=== PATIENT | female | born 1980 | race African-American/Black ===

== ENCOUNTER → 2023-11-11 | Outpatient (CLI) | payer MEDICAID | LOC: CPPFTMAIN 10:40 | PROVIDERS: ATTEND Family Medicine | DX: Z87.09 Personal history of other diseases of the respiratory system (principal) | CPT/HCPCS: 94060; 94726; 94729 ==

== ENCOUNTER 2023-11-29 13:14 | Emergency (ER) | payer MEDICAID ==
[2023-11-29 13:36] VITALS: TEMP 98.2
--- NOTE | 2023-11-29 13:59 | ED ---
General Adult HPI - General Chief complaint: Anxiety Stated complaint: anxiety Time Seen by Provider: 11/29/23 13:45 Source: patient, RN notes reviewed, old records reviewed Mode of arrival: ambulatory Limitations: no limitations - History of Present Illness Initial comments: This is a 43-year-old female who presents to the emergency department with a p ast medical history significant for anxiety. Patient comes in today because she was at work and saw something that upset her and she became very anxious and then eventually started having a panic attack. Patient states she feels just weird all over and she feels like she is going to be out of control if she does not do something. Patient denies any chest pain or back pain patient has any abdominal pain. Patient denies being short of breath. Patient states she has had these before but it has been a while. - Related Data Home Medications Medication Instructions Recorded Confirmed Tiotropium Bartelso [Spiriva 2 puff INHALATION DAILY 08/12/22 08/23/22 Handihaler] Allergies Allergy/AdvReac Type Severity Reaction Status Date / Time No Known Allergies Allergy Verified 11/29/23 13:36 Review of Systems ROS Statement: Those systems with pertinent positive or pertinent negative responses have been documented in the HPI. ROS Other: All systems not noted in ROS Statement are negative. Past Medical History Past Medical History: COPD Additional Past Medical History / Comment(s): LOW IRON History of Any Multi-Drug Resistant Organisms: None Reported Additional Past Surgical History / Comment(s): BENIGHN CYST REMOVED FROM HEAD AND ARM Past Anesthesia/Blood Transfusion Reactions: No Reported Reaction Past Psychological History: Anxiety Smoking Status: Vaper Past Alcohol Use History: Occasional Past Drug Use History: None Reported General Exam - General Exam Comments Initial Comments: GENERAL: Patient is well-developed and well-nourished. Patient is nontoxic and well- hydrated and is in mild distress. ENT: Neck is soft and supple. No significant lymphadenopathy is noted. Oropharynx is clear. Moist mucous membranes. Neck has full range of motion without eliciting any pain. EYES: The sclera were anicteric and conjunctiva were pink and moist. Extraocular movements were intact and pupils were equal round and reactive to light. Eyelids were unremarkable. PULMONARY: Unlabored respirations. Good breath sounds bilaterally. No audible rales rhonchi or wheezing was noted. CARDIOVASCULAR: There is a regular rate and rhythm without any murmurs gallops or rubs. ABDOMEN: Soft and nontender with normal bowel sounds. SKIN: Skin is clear with no lesions or rashes and otherwise unremarkable. NEUROLOGIC: Patient is alert and oriented x3. Cranial nerves II through XII are grossly intact. Motor and sensory are also intact. Normal speech, volume and content. Symmetrical smile. MUSCULOSKELETAL: Normal extremities with adequate strength and full range of motion. LYMPHATICS: No significant lymphadenopathy is noted PSYCHIATRIC: Patient is very anxious and is tearful and upset because she is having a panic attack. Limitations: no limitations Course Vital Signs 11/29/23 11/29/23 11/29/23 13:34 14:30 15:26 Temperature 98.2 F Pulse Rate 80 68 72 Respiratory 18 16 16 Rate Blood Pressure 167/115 136/85 139/83 O2 Sat by Pulse 100 100 100 Oximetry Medical Decision Making - Medical Decision Making Was pt. sent in by a medical professional or institution (, PA, TITLE SEARCHER, urgent care, hospital, or assisted...) When possible be specific @ -No Did you speak to anyone other than the patient for history (EMS, parent, family, police, friend...)? What history was obtained from this source @ -No Did you review nursing and triage notes (agree or disagree)? Why? @ -I reviewed and agree with nursing and triage notes Were old charts reviewed (outside hosp., previous admission, EMS record, old EKG, old radiological studies, urgent care reports/EKG's, assisted records)? Report findings @ -No old charts were reviewed Differential Diagnosis? @ -Differential Mental Health Depression, anxiety, bipolar, psychosis, schizophrenia, borderline personality, situational depression, adjustment disorder, behavioral disorder, brain tumor, malingering, substance abuse, encephalopathy, medication reaction, dementia, hypothyroidism, degenerative neurologic disorder, lupus.... This is not meant to be all-inclusive list EKG interpreted by me (3pts min.). @ -As above X-rays interpreted by me (1pt min.). @ -None done CT interpreted by me (1pt min.). @ -None done U/S interpreted by me (1pt. min.). @ -None done What testing was considered but not performed or refused? (CT, X-rays, U/S, labs)? Why? @ -None What meds were considered but not given or refused? Why? @ -None Did you discuss the management of the patient with other professionals (professionals i.e. DrBrenda, PA, TITLE SEARCHER, lab, RT, psych nurse, social work nurse, project designer, teacher, executive officer, top case assembler)? Give summary @ -No Was smoking cessation discussed for >3mins.? @ -No Was critical care preformed (if so, how long)? @ -No Were there social determinants of health that impacted care today? How? (Homelessness, low income, unemployed, alcoholism, drug addiction, transportation, low edu. Level, literacy, decrease access to med. care, half-way, rehab)? @ -No Was there de-escalation of care discussed even if they declined (Discuss DNR or withdrawal of care, Hospice)? DNR status @ -No What co-morbidities impacted this encounter? (DM, HTN, Smoking, COPD, CAD, Cancer, CVA, ARF, Chemo, Hep., AIDS, mental health diagnosis, sleep apnea, morbid obesity)? @ -None Was patient admitted / discharged? Hospital course, mention meds given and route, prescriptions, significant lab abnormalities, going to OR and other pertinent info. @ -Patient was given a milligram of Ativan IV and she felt considerably better however she did not feel good enough to go home. Patient had a repeat blood pressure and it was within reasonable range so she received no medications for the elevated blood pressure. Patient will follow-up with her primary medical care doctor Undiagnosed new problem with uncertain prognosis? @ -No Drug Therapy requiring intensive monitoring for toxicity (Heparin, Nitro, Insulin, Cardizem)? @ -No Were any procedures done? @ -No Diagnosis/symptom? @ -Acute anxiety Acute, or Chronic, or Acute on Chronic? @ -Acute Uncomplicated (without systemic symptoms) or Complicated (systemic symptoms)? @ -Complicated Side effects of treatment? @ -No Exacerbation, Progression, or Severe Exacerbation? @ -No Poses a threat to life or bodily function? How? (Chest pain, USA, [place], pneumonia, PE, COPD, DKA, ARF, appy, cholecystitis, CVA, Diverticulitis, Homicidal, Suicidal, threat to staff... and all critical care pts) @ -No Disposition Clinical Impression: Acute anxiety Disposition: HOME SELF-CARE Instructions (If sedation given, give patient instructions): Generalized Anxiety Disorder (ED) Is patient prescribed a controlled substance at d/c from ED?: No Referrals: Angelique Paulson MD [Primary Care Provider] - 1-2 days Time of Disposition: 15:04
[2023-11-29] MEDS: LORazepam 2 MG/ML INJ IV STA (14:07)
[2023-11-29 14:31] VITALS: RESP 16
[2023-11-29] MEDS: LORazepam 1 MG TAB PO STA (15:25)
[2023-11-29 15:41] VITALS: BP 139/83; PULSE 72
== END 2023-11-29 15:30 | disposition home or self-care (01) ==
LOC: EC 13:14
CPT/HCPCS: 96374; 99283

== ENCOUNTER → 2023-12-23 | Outpatient (CLI) | payer MEDICAID ==
[2023-12-23 13:57] VITALS: BP 142/85; PULSE 60; RESP 16; TEMP 98.2
--- NOTE | 2023-12-23 15:03 | P.PN ---
Progress Note - Text Progress Note Date: 12/23/23 I initially met the patient after she made an appointment for "mammogram and pelvic". I discovered that she recently had a pelvic exam with Pap smear done within the month and she was supposed to have a mammogram and pelvic ultrasound as ordered by her PCP. She did not intend to have an appointment to see me for a well woman examination. We contacted Dr. Sunil Duncan's office who indicated that she was supposed to have a mammogram and pelvic ultrasound. As soon as I realized she was not here to see me, the visit was discontinued and she will have the mammogram and pelvic ultrasound as recommended by her PCP. She will not be considered under my care.
--- NOTE | 2023-12-24 10:32 | MM ---
Reason for Exam: Screening (asymptomatic). Baseline mammogram. Patient History: Menarche at age 13. Patient has no children. Last menstrual period: 12/15/2023 Risk Values: Malu 5 year model risk: 0.6%. NCI Lifetime model risk: 9.6%. Prior Study Comparison: Patient's first Mammogram. Tissue Density: The breasts are heterogeneously dense, which may obscure small masses. Findings: Analyzed By CAD. Right breast: There is no suspicious group of microcalcifications or new suspicious mass. Left breast: There is no suspicious group of microcalcifications or new suspicious mass. Overall Assessment: Negative, BI-RAD 1 Management: Screening Mammogram of both breasts in [address] [facility] will attempt to contact patient to return for supplemental views and ultrasound if indicated. Patient should continue monthly self-breast exams. A clinical breast exam by your physician is recommended on an annual basis. This exam should not preclude additional follow-up of suspicious palpable abnormalities. Note on Malu scores and lifetime risk: 1. A Malu score greater than 3% is considered moderate risk. If this is the case, consider specialist referral to assess eligibility for a risk reducing agent. 2. If overall lifetime risk for the development of breast cancer is 20% or higher, the patient may qualify for future screening with alternating mammogram and breast MRI. [facility], , 12/24/2023 10:28 AM. Electronically signed and approved by: Lavelle Doherty DO
== END | disposition home or self-care (01) ==
LOC: WWCWWP 13:25
PROVIDERS: ATTEND Family Medicine
DX: Z12.31 Encounter for screening mammogram for malignant neoplasm of breast
CPT/HCPCS: 77063; 77067

== ENCOUNTER → 2024-01-16 | Outpatient (CLI) | payer MEDICAID ==
[2024-01-17 03:32] LABS: Anisocytosis (M) 2+; Basophils # (A) 0.09 X 10*3/uL (0.00-0.10); Basophils % (A) 1.4 %; Eosinophils % (A) 1.5 %; HCT 25.1 % (37.2-46.3); HGB 6.9 g/dL (12.0-15.0); Hypochromasia (M) 2+; Lymphocytes # (A) 2.05 X 10*3/uL (0.90-5.00); Lymphocytes % (A) 31.4 %; MCH 19.2 pg (27.0-32.0); MCHC 27.5 g/dL (32.0-37.0); MCV 69.7 FL (80.0-97.0); Mean Platelet Volume 10.5 FL (9.5-12.2); Microcytosis (M) 2+; Monocytes # (A) 0.52 X 10*3/uL (0.20-1.00); NRBC Per 100 WBC 0 X 10*3/uL (0.00-0.01); Neutrophils # (A) 3.74 X 10*3/uL (1.80-7.70); Neutrophils % (A) 57.4 %; Platelet Count 303 X 10*3/uL (140-440); RDW 21.3 % (11.5-14.5); Target Cells 2+; WBC 6.52 X 10*3/uL (4.50-10.00)
== END | disposition home or self-care (01) ==
LOC: LABMAIN 19:53
PROVIDERS: ATTEND Physician Assistant
DX: D64.9 Anemia, unspecified (principal)
CPT/HCPCS: 85025

== ENCOUNTER → 2024-01-22 | Outpatient (CLI) | payer MEDICAID ==
--- NOTE | 2024-01-22 12:52 | US ---
EXAMINATION TYPE: US pelvic complete DATE OF EXAM: 01/22/2024 COMPARISON: NONE CLINICAL INDICATION: Female, 43 years old with history of N92.0 EXCESSIVE AND FREQUENT MENSTRUATION; Heavy menses. Hx ?6 Fibroids; Patient denies any other signs, symptoms, or relevant history TECHNIQUE: Transabdominal (TA). Transabdominal grayscale sonographic images of the pelvis were acquired. Transvaginal sonographic im ages were medically necessary to better assess the following anatomy: Doppler imaging: Not performed. FINDINGS: Date of LMP: 01/09/2024 EXAM MEASUREMENTS: Uterus: 10.8 x 13.3 x 4.1 cm Endometrial Stripe: Unable to identify due to pathology cm Right Ovary: 5.0 x 1.5 x 3.0 cm Left Ovary: 3.0 x 2.7 x 7.7 cm 1. Uterus: Anteverted Multiple heterogenous circumscribed areas seen throughout uterus, largest ashley perior right uterus = 7.5 x 6.3 x 7.4 cm 2. Endometrium: Unable to identify due to pathology 3. Right Ovary: wnl 4. Left Ovary: wnl 5. Bilateral Adnexa: wnl 6. Posterior cul-de-sac: wnl Anteverted heterogenous uterus with multiple circumscribed masses throughout the uterus with largest in the superior right uterus measuring up to 7.5 cm. These are consistent with fibroids. Majority nisha ear intramural in location. Endometrium is poorly visualized due to fibroids. Both ovaries appear wit hin normal limits. No free fluid. IMPRESSION: 1. Fibroid changes of the uterus with largest measuring up to 7.5 cm. 2. Poor visualization of the endometrium due to #1. [facility], , 01/22/2024 12:50 PM
== END | disposition home or self-care (01) ==
LOC: RADUSWWP 12:24
PROVIDERS: ATTEND Family Medicine
CPT/HCPCS: 76856

== ENCOUNTER 2024-04-02 10:35 | Emergency (ER) | payer MEDICAID ==
[2024-04-02 10:48] VITALS: RESP 18; TEMP 98.8
--- NOTE | 2024-04-02 11:03 | ED ---
Nausea/Vomiting/Diarrhea HPI - General Chief complaint: Nausea/Vomiting/Diarrhea Stated complaint: Vomiting Time Seen by Provider: 04/02/24 10:58 Source: patient, RN notes reviewed Mode of arrival: ambulatory Limitations: no limitations - History of Present Illness Initial comments: 43-year-old female presenting for evaluation of diarrhea x 3 weeks. States she has been having frequent episodes of mucousy diarrhea with specks of bright red blood for approximately 3 weeks. States she was at work this morning when she suddenly began to feel nauseated and weak and had 1 episode of vomiting. She is having rectal pain due to the frequent diarrhea. She believes she may be dehydrated as she has been following a brat diet due to diarrhea. Denies abd ominal pain, chest pain, shortness of breath. She does have a history of low hemoglobin secondary to uterine fibroids. Last menstrual period was 3 weeks ago. She does have a history of alcohol use. - Related Data Home Medications Medication Instructions Recorded Confirmed Ferrous Sulfate [Feosol] 325 mg PO BID 04/02/24 04/02/24 Multivit with Calcium,Iron,Min 1 tab PO DAILY 04/02/24 04/02/24 [Women's Multivitamin] PARoxetine [Paxil] 20 mg PO DAILY 04/02/24 04/02/24 Previous Rx's Medication Instructions Recorded Loperamide HCl [Imodium A-D] 2 mg PO ONCE PRN #10 tablet 04/02/24 Allergies Allergy/AdvReac Type Severity Reaction Status Date / Time hazelnut Allergy Unknown Verified 04/02/24 11:24 Childhood Review of Systems ROS Statement: Those systems with pertinent positive or pertinent negative responses have been documented in the HPI. ROS Other: All systems not noted in ROS Statement are negative. Past Medical History Past Medical History: COPD Additional Past Medical History / Comment(s): LOW IRON History of Any Multi-Drug Resistant Organisms: None Reported Additional Past Surgical History / Comment(s): BENIGHN CYST REMOVED FROM HEAD AND ARM Past Anesthesia/Blood Transfusion Reactions: No Reported Reaction Past Psychological History: Anxiety Smoking Status: Never smoker Past Alcohol Use History: Daily Past Drug Use History: None Reported General Exam Limitations: no limitations General appearance: alert, in no apparent distress Head exam: Present: atraumatic, normocephalic, normal inspection Eye exam: Present: normal appearance, PERRL, EOMI. Absent: scleral icterus, conjunctival injection, periorbital swelling GI/Abdominal exam: Present: soft, normal bowel sounds. Absent: distended, tenderness, guarding, rebound, rigid Neurological exam: Present: alert, oriented X3 Psychiatric exam: Present: normal affect, normal mood Skin exam: Present: warm, dry, intact, normal color. Absent: rash Course Vital Signs 04/02/24 04/02/24 10:36 16:47 Temperature 98.8 F Pulse Rate 98 96 Respiratory 18 18 Rate Blood Pressure 130/77 130/80 O2 Sat by Pulse 100 98 Oximetry Medical Decision Making - Medical Decision Making Was pt. sent in by a medical professional or institution (, PA, HOTEL FRONT DESK AGENT, urgent care, hospital, or usp...) When possible be specific @ -No Did you speak to anyone other than the patient for history (EMS, parent, family, police, friend...)? What history was obtained from this source @ -No Did you review nursing and triage notes (agree or disagree)? Why? @ -I reviewed and agree with nursing and triage notes Were old charts reviewed (outside hosp., previous admission, EMS record, old EKG, old radiological studies, urgent care reports/EKG's, usp records)? Report findings @ -No old charts were reviewed Differential Diagnosis (chest pain, altered mental status, abdominal pain women, abdominal pain men, vaginal bleeding, weakness, fever, dyspnea, syncope, headache, dizziness, GI bleed, back pain, seizure, CVA, palpatations, mental health, musculoskeletal)? @ -Differential Abdominal Pain Women: Appendicitis, Cholecystitis, diverticulosis, ischemic bowel, pancreatitis, hepatitis, UTI, gastroenteritis, AAA, incarcerated hernia, bowel obstruction, constipation, inflammatory bowel, hepatitis, peptic ulcer disease, splenic infarction, perforated viscus, vulvitis, ovarian torsion, PID, kidney stone, placenta abruption, this is not meant to be an all-inclusive list EKG interpreted by me (3pts min.). @ -As above X-rays interpreted by me (1pt min.). @ -None done CT interpreted by me (1pt min.). @ -CT abdomen pelvis reveals fluid identified within distal colon and rectum consistent with reported history of diarrhea, no focal wall thickening or surrounding inflammatory changes, large fibroid uterus U/S interpreted by me (1pt. min.). @ -None done What testing was considered but not performed or refused? (CT, X-rays, U/S, labs)? Why? @ -None What meds were considered but not given or refused? Why? @ -None Did you discuss the management of the patient with other professionals (professionals i.e. , PA, HOTEL FRONT DESK AGENT, lab, RT, psych nurse, manager social work, parent educator, teacher, correction officer penit[facility]iary, piano case maker)? Give summary @ -No Was smoking cessation discussed for >3mins.? @ -No Was critical care preformed (if so, how long)? @ -No Were there social determinants of health that impacted care today? How? (Homelessness, low income, unemployed, alcoholism, drug addiction, tra nsportation, low edu. Level, literacy, decrease access to med. care, longterm, rehab)? @ -No Was there de-escalation of care discussed even if they declined (Discuss DNR or withdrawal of care, Hospice)? DNR status @ -No What co-morbidities impacted this encounter? (DM, HTN, Smoking, COPD, CAD, Cancer, CVA, ARF, Chemo, Hep., AIDS, mental health diagnosis, sleep apnea, morbid obesity)? @ -None Was patient admitted / discharged? Hospital course, mention meds given and route, prescriptions, significant lab abnormalities, going to OR and other pertinent info. @ -Discharge. This is a 43-year-old female presenting for diarrhea x 3 weeks. Denies abdominal pain. Vital signs within acceptable limits. Abdomen is soft and nontender. Patient is provided IV fluids and antiemetics. EKG reveals negative for ischemic changes. Lab work remarkable for hemoglobin 8.6, otherwise unremarkable. White blood cell count stable at 9. Patient states she has chronic anemia from vaginal bleeding from uterine fibroids, occasionally requiring transfusions. CT abdomen pelvis reveals fluid identified within dis bryant colon and rectum consistent with diarrhea, no focal wall thickening or surrounding inflammatory changes. Results discussed with patient. Patient will be discharged home with a prescription for Imodium. Advise close follow-up with PCP. Appropriate return precautions discussed. Case was discussed with my ED attending Dr. Ramsey. Undiagnosed new problem with uncertain prognosis? @ -No Drug Therapy requiring intensive monitoring for toxicity (Heparin, Nitro, Insulin, Cardizem)? @ -No Were any procedures done? @ -No Diagnosis/symptom? @ -Diarrhea Acute, or Chronic, or Acute on Chronic? @ -Acute Uncomplicated (without systemic symptoms) or Complicated (systemic symptoms)? @ -Uncomplicated Side effects of treatment? @ -No Exacerbation, Progression, or Severe Exacerbation? @ -No Poses a threat to life or bodily function? How? (Chest pain, [place], [place], pneumonia, PE, COPD, DKA, ARF, appy, cholecystitis, CVA, Diverticulitis, Homicidal, Suicidal, threat to staff... and all critical care pts) @ -Not at this time - Lab Data Result diagrams: 04/02/24 11:08 04/02/24 11:08 Lab Results 04/02/24 04/02/24 04/02/24 Range/Units 11:08 11:08 11:08 WBC 9.4 (3.8-10.6) k/uL RBC 4.08 (3.80-5.40) m/uL Hgb 8.6 L (11.4-16.0) gm/dL Hct 29.6 L (34.0-46.0) % MCV 72.7 L (80.0-100.0) fL MCH 21.1 L (25.0-35.0) pg MCHC 29.1 L (31.0-37.0) g/dL RDW 18.3 H (11.5-15.5) % Plt Count 900 H (150-450) k/uL MPV 7.7 Neutrophils % 81 % Lymphocytes % 12 % Monocytes % 4 % Eosinophils % 1 % Basophils % 0 % Neutrophils # 7.6 (1.3-7.7) k/uL Lymphocytes # 1.1 (1.0-4.8) k/uL Monocytes # 0.3 (0-1.0) k/uL Eosinophils # 0.1 (0-0.7) k/uL Basophils # 0.0 (0-0.2) k/uL Hypochromasia Marked Anisocytosis Slight Microcytosis Moderate Sodium 138 (137-145) mmol/L Potassium 3.9 (3.5-5.1) mmol/L Chloride 102 (98-107) mmol/L Carbon Dioxide 24 (22-30) mmol/L Anion Gap 12 mmol/L BUN 8 (7-17) mg/dL Creatinine 0.82 (0.52-1.04) mg/dL Est GFR (CKD-EPI)AfAm >90 (>60 ml/min/1.73 sqM) Est GFR (CKD-EPI)NonAf 89 (>60 ml/min/1.73 sqM) Glucose 119 H (74-99) mg/dL Plasma Lactic Acid Frankie 1.9 (0.7-2.0) mmol/L Calcium 9.7 (8.4-10.2) mg/dL Total Bilirubin 0.5 (0.2-1.3) mg/dL AST 31 (14-36) U/L ALT 21 (4-34) U/L Alkaline Phosphatase 54 (38-126) U/L Total Protein 7.3 (6.3-8.2) g/dL Albumin 4.7 (3.5-5.0) g/dL Lipase 80 (23-300) U/L Urine Color Urine Appearance (Clear) Urine pH (5.0-8.0) Ur Specific [place] (1.001-1.035) Urine Protein (Negative) Urine Glucose (UA) (Negative) Urine Ketones (Negative) Urine Blood (Negative) Urine Nitrite (Negative) Urine Bilirubin (Negative) Urine Urobilinogen (<2.0) mg/dL Ur Leukocyte Esterase (Negative) Urine RBC (0-5) /hpf Urine WBC (0-5) /hpf Ur Squamous Epith Cells (0-4) /hpf Urine Bacteria (None) /hpf Hyaline Casts (0-2) /lpf Urine Mucus (None) /hpf Urine HCG, Qual (Not Detectd) 04/02/24 04/02/24 Range/Units 12:36 12:36 WBC (3.8-10.6) k/uL RBC (3.80-5.40) m/uL Hgb (11.4-16.0) gm/dL Hct (34.0-46.0) % MCV (80.0-100.0) fL MCH (25.0-35.0) pg MCHC (31.0-37.0) g/dL RDW (11.5-15.5) % Plt Count (150-450) k/uL MPV Neutrophils % % Lymphocytes % % Monocytes % % Eosinophils % % Basophils % % Neutrophils # (1.3-7.7) k/uL Lymphocytes # (1.0-4.8) k/uL Monocytes # (0-1.0) k/uL Eosinophils # (0-0.7) k/uL Basophils # (0-0.2) k/uL Hypochromasia Anisocytosis Microcytosis Sodium (137-145) mmol/L Potassium (3.5-5.1) mmol/L Chloride (98-107) mmol/L Carbon Dioxide (22-30) mmol/L Anion Gap mmol/L BUN (7-17) mg/dL Creatinine (0.52-1.04) mg/dL Est GFR (CKD-EPI)AfAm (>60 ml/min/1.73 sqM) Est GFR (CKD-EPI)NonAf (>60 ml/min/1.73 sqM) Glucose (74-99) mg/dL Plasma Lactic Acid Frankie (0.7-2.0) mmol/L Calcium (8.4-10.2) mg/dL Total Bilirubin (0.2-1.3) mg/dL AST (14-36) U/L ALT (4-34) U/L Alkaline Phosphatase (38-126) U/L Total Protein (6.3-8.2) g/dL Albumin (3.5-5.0) g/dL Lipase (23-300) U/L Urine Color Yellow Urine Appearance Cloudy H (Clear) Urine pH 5.5 (5.0-8.0) Ur Specific [place] 1.028 (1.001-1.035) Urine Protein 1+ H (Negative) Urine Glucose (UA) Negative (Negative) Urine Ketones 2+ H (Negative) Urine Blood Negative (Negative) Urine Nitrite Negative (Negative) Urine Bilirubin Negative (Negative) Urine Urobilinogen <2.0 (<2.0) mg/dL Ur Leukocyte Esterase Negative (Negative) Urine RBC 2 (0-5) /hpf Urine WBC 6 H (0-5) /hpf Ur Squamous Epith Cells 4 (0-4) /hpf Urine Bacteria Rare H (None) /hpf Hyaline Casts 1 (0-2) /lpf Urine Mucus Many H (None) /hpf Urine HCG, Qual Not Detected (Not Detectd) - EKG Data -: EKG Interpreted by In EKG Comments: EKG reveals normal sinus rhythm with T wave inversion in lead V1. Ventricular rate 81 bpm, NM interval 136, QRS duration 96, QT/QTc 366/403 Disposition Clinical Impression: Diarrhea Disposition: HOME SELF-CARE Condition: Stable Instructions (If sedation given, give patient instructions): Acute Diarrhea (ED) Additional Instructions: Take Imodium as needed for diarrhea. Follow-up with PCP as discussed. Please return to the Emergency Department if symptoms worsen or any other concerns. Prescriptions: Loperamide HCl [Imodium A-D] 2 mg PO ONCE PRN #10 tablet PRN Reason: Diarrhea Is patient prescribed a controlled substance at d/c from ED?: No Referrals: Angelique Paulson MD [Primary Care Provider] - 1-2 days Time of Disposition: 16:14
[2024-04-02] MEDS: SODIUM CHLORIDE 0.9% 1,000 ML IV STA (11:08)
[2024-04-02] MEDS: ONDANSETRON 4 MG/2 ML VIAL IVP STA (11:09)
[2024-04-02 11:31] LABS: Anisocytosis Slight; Basophils % (A) 0 %; Eosinophils # (A) 0.1 k/uL (0-0.7); Eosinophils % (A) 1 %; HCT 29.6 % (34.0-46.0); HGB 8.6 gm/dL (11.4-16.0); Hypochromasia Marked; Lymphocytes # (A) 1.1 k/uL (1.0-4.8); Lymphocytes % (A) 12 %; MCH 21.1 pg (25.0-35.0); MCHC 29.1 g/dL (31.0-37.0); MCV 72.7 fL (80.0-100.0); Mean Platelet Volume 7.7; Microcytosis Moderate; Monocytes # (A) 0.3 k/uL (0-1.0); Monocytes % (A) 4 %; Neutrophils # (A) 7.6 k/uL (1.3-7.7); Neutrophils % (A) 81 %; Platelet Count 900 k/uL (150-450); RBC 4.08 m/uL (3.80-5.40); RDW 18.3 % (11.5-15.5); WBC 9.4 k/uL (3.8-10.6)
[2024-04-02 11:33] LABS: ALT 21 U/L (4-34); AST 31 U/L (14-36); African American GFR (CKD) >90 (>60 ml/min/1.73 sqM); Albumin 4.7 g/dL (3.5-5.0); Alkaline Phosphatase 54 U/L (38-126); Anion Gap 12 mmol/L; Blood Urea Nitrogen 8 mg/dL (7-17); Calcium 9.7 mg/dL (8.4-10.2); Carbon Dioxide 24 mmol/L (22-30); Chloride 102 mmol/L (98-107); Glucose 119 mg/dL (74-99); Lipase 80 U/L (23-300); Non-African American GFR(CKD) 89 (>60 ml/min/1.73 sqM); Potassium 3.9 mmol/L (3.5-5.1); Sodium 138 mmol/L (137-145); Total Bilirubin 0.5 mg/dL (0.2-1.3); Total Protein 7.3 g/dL (6.3-8.2)
[2024-04-02 12:56] LABS: Appearance,Urine Cloudy (Clear); Bacteria,Urine Rare /hpf; Bilirubin,Urine Negative (Negative); Blood,Urine Negative (Negative); Color,Urine Yellow; Glucose,Urine (UA) Negative (Negative); Hyaline Casts,Urine 1 /lpf (0-2); Ketones,Urine 2+ (Negative); Leukocyte Esterase,Urine Negative (Negative); Mucus,Urine Many /hpf; Nitrite,Urine Negative (Negative); PH, Urine 5.5 (5.0-8.0); Protein,Urine 1+ (Negative); RBC,Urine 2 /hpf (0-5); Specific Gravity,Urine 1.028 (1.001-1.035); Squamous Epithelial Cell,Urine 4 /hpf (0-4); Urobilinogen,Urine <2.0 mg/dL (<2.0); WBC,Urine 6 /hpf (0-5)
[2024-04-02] MEDS ORDERED: IOPAMIDOL CONTRAST (ORAL USE) VIAL PO PRN (13:56)
--- NOTE | 2024-04-02 16:02 | CT ---
EXAMINATION TYPE: CT abdomen pelvis w con CT DLP: 633.5 mGycm, Automated exposure control for dose reduction was used. DATE OF EXAM: 04/02/2024 3:48 PM COMPARISON: Pelvic ultrasound 01/22/2024 CLINICAL INDICATION:Female, 43 years old with history of abdominal pain, acute, nonlocalized; Diarrhe a x3wks. TECHNIQUE: Standard CT of the abdomen and pelvis following the administration of 100 cc of Isovue 3 00 IV contrast material and oral contrast. Coronal and sagittal reformats were performed. FINDINGS: LOWER CHEST: Unremarkable ABDOMEN LIVER: Unremarkable GALLBLADDER AND BILE DUCTS: Unremarkable. PANCREAS: Unremarkable. SPLEEN: Unremarkable. ADRENAL GLANDS: Unremarkable. KIDNEYS AND URETERS: No evidence of hydronephrosis or renal calculus. The kidneys enhance symmetrical ly. Contrast is demonstrated within both collecting systems on the delayed phase. PELVIS BLADDER: Under distended, limiting evaluation. REPRODUCTIVE: Enlarged anteverted uterus with multiple fibroids including some subserosal fibroids. L argest which appears more intramural measures up to 8.1 cm. Pedunculated one along the anterior uteri ne fundus measures up to 5.1 cm. A subserosal one along the left aspect of the uterine fundus measure s up to 6.4 cm. ABDOMEN & PELVIS STOMACH AND BOWEL: Stomach and duodenum are unremarkable. Enteric contrast reaches the transverse col on. Fluid-filled distal colon and rectum. No focal bowel wall thickening or surrounding inflammatory changes. The appendix is not definitively identified. No evidence of bowel obstruction. PERITONEUM: No evidence of pneumoperitoneum. Trace free fluid in the pelvis. VASCULATURE: No evidence of aortic aneurysm. Portal venous system is patent. Pelvic phleboliths. MUSCULOSKELETAL: No acute osseous abnormalities. Left L5 transverse process articulation with the lef t hemisacrum. LYMPH NODES: No evidence for lymphadenopathy. SOFT TISSUE/ABDOMINAL WALL: Unremarkable IMPRESSION: 1. Fluid identified within the distal colon and rectum consistent with reported history of diarrhea. No focal wall thickening or surrounding inflammatory changes. 2. Large fibroid uterus which may contribute to patient's abdominal pain. [facility], , 04/02/2024 4:00 PM
[2024-04-02 16:48] VITALS: BP 130/80; PULSE 96
== END 2024-04-02 16:48 | disposition home or self-care (01) ==
LOC: EC 10:35
DX: R19.7 Diarrhea, unspecified (principal); Z88.8 Allergy status to other drugs, medicaments and biological substances
CPT/HCPCS: 36415; 93005; 80053; 83605; 83690; 85025; 81001; 81025; 74177; 99284; 96374; 96361; J2405; Q9967

== ENCOUNTER 2024-04-07 09:11 | Inpatient (IN) | payer MEDICAID ==
--- NOTE | 2024-04-07 09:49 | ED ---
Nausea/Vomiting/Diarrhea HPI - General Source: patient, RN notes reviewed Mode of arrival: ambulatory Limitations: no limitations <Aidan Null - Last Filed: 04/07/24 16:14> <Melanie Solis - Last Filed: 04/07/24 17:32> - General Chief complaint: Nausea/Vomiting/Diarrhea Stated complaint: dehydration, nausea, diarrhea Time Seen by Provider: 04/07/24 09:20 - History of Present Illness Initial comments: Patient is a 43 year old female presenting with nausea and diarrhea for the past month. She notes that she is having tenderness in the left side of her abdomen, but rates the pain a 1-2/10. She states that on 04/02/24 she vomited at work, and she also had a CT scan, she states the CT showed "colitis". She denies any radiation of pain to her back. She states she feels bloated and gassy as well. She notes her diarrhea has gotten dark recently, but wonders if it is because she "started prebiotics and probiotics recently". She states she has been fatigued, dehydrated, and "passed out" twice this morning after getting out of the shower, denies hitting head or injury and states it was "for a few seconds". She endorses some shortness of breath "when I have to get up". She denies any chest pain, urinary changes. (Aidan Null) - Related Data Home Medications Medication Instructions Recorded Confirmed Ferrous Sulfate [Feosol] 325 mg PO BID 04/02/24 04/07/24 Multivit with Calcium,Iron,Min 1 tab PO DAILY 04/02/24 04/07/24 [Women's Multivitamin] PARoxetine [Paxil] 20 mg PO DAILY 04/02/24 04/07/24 Loperamide HCl [Imodium A-D] 2 - 4 mg PO QID PRN 04/07/24 04/07/24 Allergies Allergy/AdvReac Type Severity Reaction Status Date / Time hazelnut Allergy Unknown Verified 04/07/24 11:59 Childhood Review of Systems ROS Other: All systems not noted in ROS Statement are negative. <Aidan Null - Last Filed: 04/07/24 16:14> ROS Other: All systems not noted in ROS Statement are negative. <Melanie Solis - Last Filed: 04/07/24 17:32> ROS Statement: Those systems with pertinent positive or pertinent negative responses have been documented in the HPI. Past Medical History Past Medical History: COPD Additional Past Medical History / Comment(s): LOW IRON History of Any Multi-Drug Resistant Organisms: None Reported Additional Past Surgical History / Comment(s): BENIGHN CYST REMOVED FROM HEAD AND ARM Past Anesthesia/Blood Transfusion Reactions: No Reported Reaction Past Psychological History: Anxiety Smoking Status: Never smoker Past Alcohol Use History: Daily Past Drug Use History: None Reported <Aidan Null - Last Filed: 04/07/24 16:14> General Exam Limitations: no limitations General appearance: alert, in no apparent distress ENT exam: Present: mucous membranes dry Respiratory exam: Present: normal lung sounds bilaterally. Absent: respiratory distress, wheezes, rales, rhonchi, stridor Cardiovascular Exam: Present: normal rhythm, tachycardia, normal heart sounds. Absent: systolic murmur, diastolic murmur, rubs, gallop, clicks GI/Abdominal exam: Present: soft, tenderness, hyperactive bowel sounds. Absent: distended, guarding, rebound, rigid Back exam: Present: normal inspection. Absent: tenderness Neurological exam: Present: alert, oriented X3, CN II-XII intact Skin exam: Present: warm, dry, intact, normal color. Absent: rash <Aidan Null - Last Filed: 04/07/24 16:14> Course Vital Signs 04/07/24 04/07/24 04/07/24 09:17 10:45 10:50 Temperature 102.5 F H Pulse Rate 118 H 94 94 Respiratory 18 16 20 Rate Blood Pressure 113/71 135/75 136/74 O2 Sat by Pulse 98 98 98 Oximetry 04/07/24 04/07/24 04/07/24 12:00 14:00 15:00 Temperature Pulse Rate 75 84 90 Respiratory 20 16 20 Rate Blood Pressure 130/70 113/69 114/60 O2 Sat by Pulse 98 98 98 Oximetry Medical Decision Making - Lab Data Result diagrams: 04/07/24 09:38 04/07/24 09:38 - EKG Data -: EKG Interpreted by Nd <Aidan Null - Last Filed: 04/07/24 16:14> - Lab Data Result diagrams: 04/07/24 09:38 04/07/24 09:38 <SolisMelanie gomez - Last Filed: 04/07/24 17:32> - Medical Decision Making Was pt. sent in by a medical professional or institution ([facility], [employer], urgent care, hospital, or shelter...) When possible be specific @ -No Did you speak to anyone other than the patient for history (EMS, parent, family, police, friend...)? What history was obtained from this source @ -No Did you review nursing and triage notes (agree or disagree)? Why? @ -I reviewed and agree with nursing and triage notes Were old charts reviewed (outside hosp., previous admission, EMS record, old EKG, old radiological studies, urgent care reports/EKG's, shelter records)? Report findings @ -Reviewed CT on 04/05/2024 showing diarrhea, uterine fibroids Differential Diagnosis (chest pain, altered mental status, abdominal pain women, abdominal pain men, vaginal bleeding, weakness, fever, dyspnea, syncope, headache, dizziness, GI bleed, back pain, seizure, CVA, palpatations, mental health, musculoskeletal)? @ -Differential Fever: Pneumonia, viral URI, endocarditis, myocarditis, pericarditis, otitis, sinusitis, peritonsillar Abscess, retropharyngeal Abscess, epiglottitis, peritonitis, appendicitis, Rachel cystitis, diverticulitis, hepatitis, colitis, UTI, PID, TOA, pyelonephritis, prostatitis, epididymitis, meningitis, encepha litis, pulmonary embolism, CVA, thyroid storm, pancreatitis, adrenal crisis, cavernous sinus thrombosis, this is not meant to be an all-inclusive list. EKG interpreted by me (3pts min.). @ -As above X-rays interpreted by me (1pt min.). @ -Chest x-ray shows no acute cardiopulmonary process CT interpreted by me (1pt min.). @ -None done U/S interpreted by me (1pt. min.). @ -None done What testing was considered but not performed or refused? (CT, X-rays, U/S, labs)? Why? @ -None What meds were considered but not given or refused? Why? @ -None Did you discuss the management of the patient with other professionals (professionals i.e. [facility] Gomez, [employer], lab, RT, psych nurse, psych social worker, data center technician, teacher, workers' compensation hearings officer, nurse case manager)? Give summary @ -No Was smoking cessation discussed for >3mins.? @ -No Was critical care preformed (if so, how long)? @ -No Were there social determinants of health that impacted care today? How? (Homelessness, low income, unemployed, alcoholism, drug addiction, tr ansportation, low edu. Level, literacy, decrease access to med. care, group home, rehab)? @ -No Was there de-escalation of care discussed even if they declined (Discuss DNR or withdrawal of care, Hospice)? DNR status @ -No What co-morbidities impacted this encounter? (DM, HTN, Smoking, COPD, CAD, Cancer, CVA, ARF, Chemo, Hep., AIDS, mental health diagnosis, sleep apnea, morbid obesity)? @ -None Was patient admitted / discharged? Hospital course, mention meds given and route, prescriptions, significant lab abnormalities, going to OR and other pertinent info. @ case signed out to Melanie HARMON signed Aidan Null PA-C (Aidan Null) Patient signed out to me pending C. difficile testing. Patient is C. difficile positive. Given white count of 22.9 and dehydration, patient will be admitted for observation. She started on oral vancomycin 125 mg. IV fluids, as needed antiemetics, as needed pain meds. She is educated on today's findings and treatment plan, she is agreeable. I discussed this case with my attending Dr. Garcia (Melanie Solis) - Lab Data Lab Results 04/07/24 04/07/24 04/07/24 Range/Units 09:38 09:38 09:38 WBC 22.9 H (3.8-10.6) k/uL RBC 4.29 (3.80-5.40) m/uL Hgb 9.0 L (11.4-16.0) gm/dL Hct 29.4 L (34.0-46.0) % MCV 68.4 L (80.0-100.0) fL MCH 20.9 L (25.0-35.0) pg MCHC 30.5 L (31.0-37.0) g/dL RDW 17.5 H (11.5-15.5) % Plt Count 644 H (150-450) k/uL MPV 8.1 Neutrophils % 87 % Lymphocytes % 3 % Monocytes % 7 % Eosinophils % 0 % Basophils % 0 % Neutrophils # 20.0 H (1.3-7.7) k/uL Lymphocytes # 0.8 L (1.0-4.8) k/uL Monocytes # 1.7 H (0-1.0) k/uL Eosinophils # 0.0 (0-0.7) k/uL Basophils # 0.1 (0-0.2) k/uL Hypochromasia Marked Poikilocytosis Slight Anisocytosis Slight Microcytosis Marked Sodium 130 L (137-145) mmol/L Potassium 3.3 L (3.5-5.1) mmol/L Chloride 90 L (98-107) mmol/L Carbon Dioxide 28 (22-30) mmol/L Anion Gap 12 mmol/L BUN 7 (7-17) mg/dL Creatinine 0.88 (0.52-1.04) mg/dL Est GFR (CKD-EPI)AfAm >90 (>60 ml/min/1.73 sqM) Est GFR (CKD-EPI)NonAf 82 (>60 ml/min/1.73 sqM) Glucose 141 H (74-99) mg/dL Calcium 9.4 (8.4-10.2) mg/dL Magnesium 1.6 (1.6-2.3) mg/dL Total Bilirubin 0.6 (0.2-1.3) mg/dL AST 26 (14-36) U/L ALT 19 (4-34) U/L Alkaline Phosphatase 87 (38-126) U/L Total Protein 6.6 (6.3-8.2) g/dL Albumin 3.8 (3.5-5.0) g/dL Urine Color Urine Appearance (Clear) Urine pH (5.0-8.0) Ur Specific [place] (1.001-1.035) Urine Protein (Negative) Urine Glucose (UA) (Negative) Urine Ketones (Negative) Urine Blood (Negative) Urine Nitrite (Negative) Urine Bilirubin (Negative) Urine Urobilinogen (<2.0) mg/dL Ur Leukocyte Esterase (Negative) Urine WBC (0-5) /hpf Ur Squamous Epith Cells (0-4) /hpf Urine Bacteria (None) /hpf Hyaline Casts (0-2) /lpf Urine Mucus (None) /hpf C. difficile (EIA) Intrp (Negative) Influenza Type A (PCR) Not Detected (Not Detectd) Influenza Type B (PCR) Not Detected (Not Detectd) RSV (PCR) Not Detected (Not Detectd) SARS-CoV-2 (PCR) Not Detected (Not Detectd) 04/07/24 04/07/24 Range/Units 11:23 14:00 WBC (3.8-10.6) k/uL RBC (3.80-5.40) m/uL Hgb (11.4-16.0) gm/dL Hct (34.0-46.0) % MCV (80.0-100.0) fL MCH (25.0-35.0) pg MCHC (31.0-37.0) g/dL RDW (11.5-15.5) % Plt Count (150-450) k/uL MPV Neutrophils % % Lymphocytes % % Monocytes % % Eosinophils % % Basophils % % Neutrophils # (1.3-7.7) k/uL Lymphocytes # (1.0-4.8) k/uL Monocytes # (0-1.0) k/uL Eosinophils # (0-0.7) k/uL Basophils # (0-0.2) k/uL Hypochromasia Poikilocytosis Anisocytosis Microcytosis Sodium (137-145) mmol/L Potassium (3.5-5.1) mmol/L Chloride (98-107) mmol/L Carbon Dioxide (22-30) mmol/L Anion Gap mmol/L BUN (7-17) mg/dL Creatinine (0.52-1.04) mg/dL Est GFR (CKD-EPI)AfAm (>60 ml/min/1.73 sqM) Est GFR (CKD-EPI)NonAf (>60 ml/min/1.73 sqM) Glucose (74-99) mg/dL Calcium (8.4-10.2) mg/dL Magnesium (1.6-2.3) mg/dL Total Bilirubin (0.2-1.3) mg/dL AST (14-36) U/L ALT (4-34) U/L Alkaline Phosphatase (38-126) U/L Total Protein (6.3-8.2) g/dL Albumin (3.5-5.0) g/dL Urine Color Yellow Urine Appearance Cloudy H (Clear) Urine pH 6.0 (5.0-8.0) Ur Specific [place] 1.017 (1.001-1.035) Urine Protein 1+ H (Negative) Urine Glucose (UA) Negative (Negative) Urine Ketones 1+ H (Negative) Urine Blood Negative (Negative) Urine Nitrite Negative (Negative) Urine Bilirubin Negative (Negative) Urine Urobilinogen <2.0 (<2.0) mg/dL Ur Leukocyte Esterase Negative (Negative) Urine WBC 10 H (0-5) /hpf Ur Squamous Epith Cells 4 (0-4) /hpf Urine Bacteria Rare H (None) /hpf Hyaline Casts 1 (0-2) /lpf Urine Mucus Few H (None) /hpf C. difficile (EIA) Intrp Positive A (Negative) Influenza Type A (PCR) (Not Detectd) Influenza Type B (PCR) (Not Detectd) RSV (PCR) (Not Detectd) SARS-CoV-2 (PCR) (Not Detectd) - EKG Data EKG Comments: EKG performed at 10: 24 sinus rhythm rate 99 ID 126 QRS 100 QT/QTc 269/326 (Aidan Null) Disposition <Aidan Null - Last Filed: 04/07/24 16:14> Time of Disposition: 16:55 <Melanie Solis - Last Filed: 04/07/24 17:32> Clinical Impression: C. difficile diarrhea Disposition: ADMITTED IP TO THIS HOSP Condition: Fair
[2024-04-07] MEDS: SODIUM CHLORIDE 0.9% 1,000 ML IV STA (10:37)
[2024-04-07] MEDS: IBUPROFEN 600 MG TAB PO STA (10:39)
[2024-04-07] MEDS: ONDANSETRON 4 MG/2 ML VIAL IVP STA ×2 (10:39→15:27)
[2024-04-07] MEDS: ACETAMINOPHEN TAB 500 MG TAB PO STA (10:39)
[2024-04-07 11:09] LABS: ALT 19 U/L (4-34); AST 26 U/L (14-36); African American GFR (CKD) >90 (>60 ml/min/1.73 sqM); Albumin 3.8 g/dL (3.5-5.0); Alkaline Phosphatase 87 U/L (38-126); Anion Gap 12 mmol/L; Blood Urea Nitrogen 7 mg/dL (7-17); Calcium 9.4 mg/dL (8.4-10.2); Carbon Dioxide 28 mmol/L (22-30); Chloride 90 mmol/L (98-107); Glucose 141 mg/dL (74-99); Magnesium 1.6 mg/dL (1.6-2.3); Non-African American GFR(CKD) 82 (>60 ml/min/1.73 sqM); Potassium 3.3 mmol/L (3.5-5.1); Sodium 130 mmol/L (137-145); Total Bilirubin 0.6 mg/dL (0.2-1.3); Total Protein 6.6 g/dL (6.3-8.2)
[2024-04-07 11:17] LABS: Anisocytosis Slight; Basophils # (A) 0.1 k/uL (0-0.2); Basophils % (A) 0 %; Eosinophils % (A) 0 %; HCT 29.4 % (34.0-46.0); Hypochromasia Marked; Lymphocytes # (A) 0.8 k/uL (1.0-4.8); Lymphocytes % (A) 3 %; MCH 20.9 pg (25.0-35.0); MCHC 30.5 g/dL (31.0-37.0); MCV 68.4 fL (80.0-100.0); Mean Platelet Volume 8.1; Microcytosis Marked; Monocytes # (A) 1.7 k/uL (0-1.0); Monocytes % (A) 7 %; Neutrophils % (A) 87 %; Platelet Count 644 k/uL (150-450); Poikilocytosis Slight; RBC 4.29 m/uL (3.80-5.40); RDW 17.5 % (11.5-15.5); WBC 22.9 k/uL (3.8-10.6)
[2024-04-07 11:28] LABS: Influenza A Not Detected (Not Detectd); Influenza B Not Detected (Not Detectd); RSV Not Detected (Not Detectd)
[2024-04-07 11:45] LABS: Appearance,Urine Cloudy (Clear); Bacteria,Urine Rare /hpf; Bilirubin,Urine Negative (Negative); Blood,Urine Negative (Negative); Color,Urine Yellow; Glucose,Urine (UA) Negative (Negative); Hyaline Casts,Urine 1 /lpf (0-2); Ketones,Urine 1+ (Negative); Leukocyte Esterase,Urine Negative (Negative); Mucus,Urine Few /hpf; Nitrite,Urine Negative (Negative); Protein,Urine 1+ (Negative); Specific Gravity,Urine 1.017 (1.001-1.035); Squamous Epithelial Cell,Urine 4 /hpf (0-4); Urobilinogen,Urine <2.0 mg/dL (<2.0); WBC,Urine 10 /hpf (0-5)
--- NOTE | 2024-04-07 12:41 | XR ---
EXAMINATION TYPE: XR chest 2V DATE OF EXAM: 04/07/2024 12:20 PM COMPARISON: None CLINICAL INDICATION: Female, 43 years old with history of fever; [facility] TECHNIQUE: XR chest 2V Frontal and lateral views of the chest. FINDINGS: Lungs/Pleura: There is no evidence of pleural effusion, focal consolidation, or pneumothorax. Pulmonary vascularity: Unremarkable. Heart/mediastinum: Cardiomediastinal silhouette is unremarkable. Musculoskeletal: No acute osseous pathology. Other findings: None Lines/Tubes: IMPRESSION: No acute cardiopulmonary disease/process. [facility], , 04/07/2024 12:38 PM
[2024-04-07] MEDS: SODIUM CHLORIDE 0.9% 1,000 ML IV ONE (14:14)
[2024-04-07] MEDS ORDERED: NALOXONE 0.4 MG/ML 1 ML VIAL IV PRN (16:59)
[2024-04-07] MEDS ORDERED: ACETAMINOPHEN TAB 325 MG TAB PO PRN (16:59)
[2024-04-07] MEDS ORDERED: ONDANSETRON 4 MG/2 ML VIAL IVP PRN (16:59)
[2024-04-07] MEDS ORDERED: IBUPROFEN 400 MG TAB PO PRN (16:59)
[2024-04-07] MEDS ORDERED: Potassium Replacement Protocol 1 EACH MISC MISCELLANE PRN (17:30)
[2024-04-07] MEDS: SODIUM CHLORIDE 0.9% 1,000 ML IV SCH (17:57)
[2024-04-07] MEDS: POTASSIUM CHLORIDE ER 20 MEQ TAB.ER PO SCH (17:58)
[2024-04-07] MEDS: VANCOMYCIN 125 MG CAPSULE PO SCH (17:59)
[2024-04-07] MEDS: METOCLOPRAMIDE 5 MG/ML 2 ML VIAL IVP PRN (22:24)
[2024-04-08 11:01] LABS: ALT 23 U/L (8-44); AST 29 U/L (13-35); Albumin 3.1 g/dL (3.8-4.9); Albumin/Globulin Ratio 1.29 Ratio (1.60-3.17); Alkaline Phosphatase 79 U/L (41-126); BUN/Creat Ratio 12.75 Ratio (12.00-20.00); Blood Urea Nitrogen 10.2 mg/dL (9.0-27.0); Calcium 8.4 mg/dL (8.7-10.3); Carbon Dioxide 23.2 mmol/L (21.6-31.8); Chloride 95 mmol/L (96-109); Globulin 2.4 g/dL (1.6-3.3); Glucose 109 mg/dL (70-110); Potassium 3.7 mmol/L (3.5-5.5); Sodium 133 mmol/L (135-145); Total Bilirubin 0.3 mg/dL (0.3-1.2); Total Protein 5.5 g/dL (6.2-8.2)
[2024-04-08] MEDS: PARoxetine 20 MG TAB PO SCH (11:17)
[2024-04-08] MEDS: LOPERAMIDE 2 MG CAP PO PRN (11:17)
[2024-04-08 11:50] LABS: HCT 26.5 % (37.2-46.3); HGB 7.8 g/dL (12.0-15.0); MCH 20.1 pg (27.0-32.0); MCHC 29.4 g/dL (32.0-37.0); MCV 68.3 FL (80.0-97.0); Mean Platelet Volume 10.3 FL (9.5-12.2); NRBC Per 100 WBC 0 X 10*3/uL (0.00-0.01); Platelet Count 621 X 10*3/uL (140-440); RBC 3.88 X 10*6/uL (4.10-5.20); RDW 19.4 % (11.5-14.5); WBC 37.57 X 10*3/uL (4.50-10.00)
[2024-04-08 11:51] LABS: Basophils # (A) 0.05 X 10*3/uL (0.00-0.10); Basophils % (A) 0.1 %; Elliptocytes 2+ (None Seen); Eosinophils # (A) 0.03 X 10*3/uL (0.04-0.35); Eosinophils % (A) 0.1 %; Lymphocytes # (A) 0.88 X 10*3/uL (0.90-5.00); Lymphocytes % (A) 2.3 %; Monocytes # (A) 1.85 X 10*3/uL (0.20-1.00); Monocytes % (A) 4.9 %; Neutrophils # (A) 34.58 X 10*3/uL (1.80-7.70); Neutrophils % (A) 92.1 %
[2024-04-08 13:51] VITALS: BMI 23.5
[2024-04-08] MEDS: LACTOBACILLUS ACIDOPHILUS/PECT 1 EACH CAPSULE PO SCH (14:29)
[2024-04-08] MEDS: VANCOMYCIN 125 MG CAPSULE PO SCH (14:30)
--- NOTE | 2024-04-08 15:01 | P.HPIM ---
History of Present Illness H&P Date: 04/08/24 This is a pleasant 43-year-old female with medical history significant for COPD, anxiety/depression, daily vape use. Patient comes into the hospital after reporting a 1 month history of nausea and diarrhea. She also feels bloated and gassy. She then over the last couple days experiencing dark stools and abdominal discomfort mainly on the left side and had some mild abdominal tenderness. Patient has not reported fever but was found to have a temp of 102.5 on admission. Has been fatigued and states she "passed out" today while getting out of the shower. She has been following along with her family doctor for this diarrhea recommended yogurt and probiotics and patient has been doing that for the last 4 to 5 days. She is also on oral iron for iron deficiency anemia and states that her stools have been darker over the last couple days as well. Had an abdominal pelvis CT done on which reveals fluid identified within the distal colon and rectum consistent with reported history of diarrhea. No focal wall thickening or surrounding inflammatory changes. Large fibroid uterus which may contribute to patient's abdominal pain. On admission, patient was found to have C. difficile infection. Patient does report being on oral and vaginal metronidazole for BV, 2 to 3 months before she began having the diarrhea. Chest X-ray on admission reveals no acute cardiopulmonary process. Initial white blood cell count of 22.9, hemoglobin of 9.0, sodium level of 130, potassium 3.3, BUN of 7 creatinine of 0.88. REVIEW OF SYSTEMS: CONSTITUTIONAL: No fever, no malaise, no fatigue. HEENT: No recent visual problems or hearing problems. Denied any sore throat. CARDIOVASCULAR: No chest pain, orthopnea, PND, no palpitations, no syncope. PULMONARY: No shortness of breath, no cough, no hemoptysis. GASTROINTESTINAL: Reorts diarrhea, no nausea, no vomiting, no abdominal pain. NEUROLOGICAL: No headaches, no weakness, no numbness. HEMATOLOGICAL: Denies any bleeding or petechiae. GENITOURINARY: Denies any burning micturition, frequency, or urgency. MUSCULOSKELETAL/RHEUMATOLOGICAL: Denies any joint pain, swelling, or any muscle pain. ENDOCRINE: Denies any polyuria or polydipsia. The rest of the 14-point review of systems is negative. PHYSICAL EXAMINATION: GENERAL: The patient is alert and oriented x3, not in any acute distress. Well developed, well nourished. HEENT: Pupils are round and equally reacting to light. EOMI. No scleral icterus. No conjunctival pallor. Normocephalic, atraumatic. No pharyngeal erythema. No thyromegaly. CARDIOVASCULAR: S1 and S2 present. No murmurs, rubs, or gallops. PULMONARY: Chest is clear to auscultation, no wheezing or crackles. ABDOMEN: Soft, mild abdominal tenderness, nondistended, normoactive bowel sounds. No palpable organomegaly. MUSCULOSKELETAL: No joint swelling or deformity. EXTREMITIES: No cyanosis, clubbing, or pedal edema. NEUROLOGICAL: Gross neurological examination did not reveal any focal deficits. SKIN: No rashes. Assessment and plan Diarrhea of 1 month with positive C. difficile Leukocytosis and fever with concern for sepsis on admission History of iron deficiency anemia maintained on oral ferrous sulfate which is currently being held at this time Hyponatremia hypovolemic improved with IV fluids Hypokalemia secondary to continued diarrhea Abnormal urinalysis no evidence for acute infection this is dehydrational History of COPD with no acute exacerbation History of anxiety/depression, Daily vape use GI prophylaxis Full code Plan Infectious disease consultation Patient has been started on oral vancomycin 500 mg 4 times a day Monitor electrolytes and replace per protocol patient will be given oral potassium supplementation Continue IV fluids decreased to normal saline at 75 mL/h Repeat blood work in the morning The impression and plan of care has been dictated by Skyla Nelson Nurse Practitioner as directed. Dr. Nikunj MD I have performed a history and physical examination and medical decision making of this patient, discussed the same with the dictator, and agree with the dictators assessment and plan as written, documented as a scribe. Based on total visit time, I have performed more than 50% of this visit. Past Medical History Past Medical History: COPD Additional Past Medical History / Comment(s): LOW IRON History of Any Multi-Drug Resistant Organisms: C-DIFF Date of last positivie culture/infection: 04/07/2024 MDRO Source:: stool Additional Past Surgical History / Comment(s): BENIGN CYST REMOVED FROM HEAD AND ARM Past Anesthesia/Blood Transfusion Reactions: No Reported Reaction Past Psychological History: Anxiety, Depression Additional Psychological History / Comment(s): HX OF DEPRESSION AND ANXIETY NOT CURRENTLY TX Smoking Status: Vaper Past Alcohol Use History: Daily Past Drug Use History: Marijuana Additional Drug Use History / Comment(s): NONE CURRENTLY HX - Past Family History Father Family Medical History: Diabetes Mellitus, Hypertension, Myocardial Infarction ([place]) Additional Family Medical History / Comment(s): thyroid Ca, schizophrenia Mother Family Medical History: Diabetes Mellitus, Thyroid Disorder Medications and Allergies Home Medications Medication Instructions Recorded Confirmed Type Ferrous Sulfate [Feosol] 325 mg PO BID 04/02/24 04/07/24 History Multivit with Calcium,Iron,Min 1 tab PO DAILY 04/02/24 04/07/24 History [Women's Multivitamin] PARoxetine [Paxil] 20 mg PO DAILY 04/02/24 04/07/24 History Loperamide HCl [Imodium A-D] 2 - 4 mg PO QID PRN 04/07/24 04/07/24 History Allergies Allergy/AdvReac Type Severity Reaction Status Date / Time hazelnut Allergy Unknown Verified 04/07/24 11:59 Childhood Physical Exam Vitals: Vital Signs Temp Pulse Pulse Resp BP BP Pulse Ox 04/08/24 08:00 16 04/08/24 07:10 100.0 F H 93 16 105/61 100 04/08/24 00:49 98.6 F 92 16 119/70 100 04/07/24 21:50 98.5 F 92 16 116/72 96 04/07/24 20:46 97.5 F L 88 18 105/75 100 04/07/24 18:00 85 20 125/68 98 04/07/24 15:00 90 20 114/60 98 Intake and Output 04/07/24 04/08/24 04/08/24 22:59 06:59 14:59 Intake Total 200 Balance 200 Intake: Oral 200 Other: Voiding Method Toilet # Voids 5 # Bowel Movements 1 Weight 68.039 kg 68.039 kg Results CBC & Chem 7: 04/08/24 06:48 04/08/24 06:48 Labs: Abnormal Lab Results - Last 24 Hours (Table) 04/07/24 04/08/24 04/08/24 Range/Units 14:00 06:48 06:48 WBC 37.57 H (4.50-10.00) X 10*3/uL RBC 3.88 L (4.10-5.20) X 10*6/uL Hgb 7.8 L (12.0-15.0) g/dL Hct 26.5 L (37.2-46.3) % MCV 68.3 L (80.0-97.0) FL MCH 20.1 L (27.0-32.0) pg MCHC 29.4 L (32.0-37.0) g/dL RDW 19.4 H (11.5-14.5) % Plt Count 621 H (140-440) X 10*3/uL Immature Gran # 0.18 H (0.00-0.04) X 10*3/uL Neutrophils # 34.58 H (1.80-7.70) X 10*3/uL Lymphocytes # 0.88 L (0.90-5.00) X 10*3/uL Monocytes # 1.85 H (0.20-1.00) X 10*3/uL Eosinophils # 0.03 L (0.04-0.35) X 10*3/uL Elliptocytes 2+ A (None Seen) Sodium 133 L (135-145) mmol/L Chloride 95 L (96-109) mmol/L Anion Gap 14.80 H (4.00-12.00) mmol/L Calcium 8.4 L (8.7-10.3) mg/dL Total Protein 5.5 L (6.2-8.2) g/dL Albumin 3.1 L (3.8-4.9) g/dL Albumin/Globulin Ratio 1.29 L (1.60-3.17) Ratio C. difficile (EIA) Intrp Positive A (Negative) Thrombosis Risk Factor Assmnt - Choose All That Apply Any of the Below Risk Factors Present?: Yes Each Factor Represents 1 point: Abnormal pulmonary function (COPD), Age 41-60 y ears Other Risk Factors: No Other congenital or acquired thrombophilia - If yes, enter type in comment: No Thrombosis Risk Factor Assessment Total Risk Factor Score: 2 Thrombosis Risk Factor Assessment Level: Low Risk Assessment and Plan Time with Patient: Less than 30
[2024-04-08] MEDS: SODIUM CHLORIDE 0.9% 1,000 ML IV SCH (18:25)
[2024-04-09] MEDS: PANTOPRAZOLE 40 MG TABLET PO SCH (06:41)
[2024-04-09] MEDS: KETOROLAC 15 MG/ML 1 ML VIAL IVP PRN (06:46)
--- NOTE | 2024-04-09 08:33 | P.GSCN ---
History of Present Illness Consult date: 04/08/24 History of present illness: 43-year-old female presents to the emergency department and is admitted after 1 month of abdominal discomfort and diarrhea. She states that this has been worsening over the past month. Since her admission, stool studies have been performed with confirmation of C. difficile infection. She has significant leukocytosis of 37. She states she has never had this infection previously. Currently on oral Vanco. Currently denies any significant abdominal pain. No febrile episodes. Stool occult is also noted to be positive. Review of Systems All systems: negative Past Medical History Past Medical History: COPD Additional Past Medical History / Comment(s): LOW IRON History of Any Multi-Drug Resistant Organisms: C-DIFF Year Discovered:: 04/07/2024 MDRO Source:: stool Additional Past Surgical History / Comment(s): BENIGN CYST REMOVED FROM HEAD AND ARM Past Anesthesia/Blood Transfusion Reactions: No Reported Reaction Past Psychological History: Anxiety, Depression Additional Psychological History / Comment(s): HX OF DEPRESSION AND ANXIETY NOT CURRENTLY [place] Smoking Status: Vaper Past Alcohol Use History: Daily Past Drug Use History: Marijuana Additional Drug Use History / Comment(s): NONE CURRENTLY HX - Past Family History Father Family Medical History: Diabetes Mellitus, Hypertension, Myocardial Infarction ([place]) Additional Family Medical History / Comment(s): thyroid Ca, schizophrenia Mother Family Medical History: Diabetes Mellitus, Thyroid Disorder Medications and Allergies Home Medications Medication Instructions Recorded Confirmed Type Ferrous Sulfate [Feosol] 325 mg PO BID 04/02/24 04/07/24 History Multivit with Calcium,Iron,Min 1 tab PO DAILY 04/02/24 04/07/24 History [Women's Multivitamin] PARoxetine [Paxil] 20 mg PO DAILY 04/02/24 04/07/24 History Loperamide HCl [Imodium A-D] 2 - 4 mg PO QID PRN 04/07/24 04/07/24 History Allergies Allergy/AdvReac Type Severity Reaction Status Date / Time hazelnut Allergy Unknown Verified 04/07/24 11:59 Childhood Surgical - Exam Osteopathic Statement: *. No significant issues noted on an osteopathic structural exam other than those noted in the History and Physical/Consult. Vital Signs Temp Pulse Resp BP Pulse Ox 102.5 F H 118 H 18 113/71 98 04/07/24 09:17 04/07/24 09:17 04/07/24 09:17 04/07/24 09:17 04/07/24 09:17 - General well developed, well nourished - Eyes normal ocular movement - ENT no hearing loss - Neck trachea midline - Respiratory normal respiratory effort - Abdomen Abdomen: soft, non tender - Psychiatric oriented to time, oriented to person, oriented to place Results - Labs 04/08/24 06:48 04/08/24 06:48 Abnormal Lab Results - Last 24 Hours (Table) 04/08/24 04/08/24 04/08/24 Range/Units 03:55 06:48 06:48 WBC 37.57 H (4.50-10.00) X 10*3/uL RBC 3.88 L (4.10-5.20) X 10*6/uL Hgb 7.8 L (12.0-15.0) g/dL Hct 26.5 L (37.2-46.3) % MCV 68.3 L (80.0-97.0) FL MCH 20.1 L (27.0-32.0) pg MCHC 29.4 L (32.0-37.0) g/dL RDW 19.4 H (11.5-14.5) % Plt Count 621 H (140-440) X 10*3/uL Immature Gran # 0.18 H (0.00-0.04) X 10*3/uL Neutrophils # 34.58 H (1.80-7.70) X 10*3/uL Lymphocytes # 0.88 L (0.90-5.00) X 10*3/uL Monocytes # 1.85 H (0.20-1.00) X 10*3/uL Eosinophils # 0.03 L (0.04-0.35) X 10*3/uL Elliptocytes 2+ A (None Seen) Sodium 133 L (135-145) mmol/L Chloride 95 L (96-109) mmol/L Anion Gap 14.80 H (4.00-12.00) mmol/L Calcium 8.4 L (8.7-10.3) mg/dL Total Protein 5.5 L (6.2-8.2) g/dL Albumin 3.1 L (3.8-4.9) g/dL Albumin/Globulin Ratio 1.29 L (1.60-3.17) Ratio Stool Occult Blood Positive H (Negative) Diabetes panel 04/08/24 Range/Units 06:48 Sodium 133 L (135-145) mmol/L Potassium 3.7 (3.5-5.5) mmol/L Chloride 95 L (96-109) mmol/L Carbon Dioxide 23.2 (21.6-31.8) mmol/L BUN 10.2 (9.0-27.0) mg/dL Creatinine 0.8 (0.6-1.5) mg/dL Glucose 109 (70-110) mg/dL Calcium 8.4 L (8.7-10.3) mg/dL AST 29 (13-35) U/L ALT 23 (8-44) U/L Alkaline Phosphatase 79 (41-126) U/L Total Protein 5.5 L (6.2-8.2) g/dL Albumin 3.1 L (3.8-4.9) g/dL Calcium panel 04/08/24 Range/Units 06:48 Calcium 8.4 L (8.7-10.3) mg/dL Albumin 3.1 L (3.8-4.9) g/dL Pituitary panel 04/08/24 Range/Units 06:48 Sodium 133 L (135-145) mmol/L Potassium 3.7 (3.5-5.5) mmol/L Chloride 95 L (96-109) mmol/L Carbon Dioxide 23.2 (21.6-31.8) mmol/L BUN 10.2 (9.0-27.0) mg/dL Creatinine 0.8 (0.6-1.5) mg/dL Glucose 109 (70-110) mg/dL Calcium 8.4 L (8.7-10.3) mg/dL Adrenal panel 04/08/24 Range/Units 06:48 Sodium 133 L (135-145) mmol/L Potassium 3.7 (3.5-5.5) mmol/L Chloride 95 L (96-109) mmol/L Carbon Dioxide 23.2 (21.6-31.8) mmol/L BUN 10.2 (9.0-27.0) mg/dL Creatinine 0.8 (0.6-1.5) mg/dL Glucose 109 (70-110) mg/dL Calcium 8.4 L (8.7-10.3) mg/dL Total Bilirubin 0.3 (0.3-1.2) mg/dL AST 29 (13-35) U/L ALT 23 (8-44) U/L Alkaline Phosphatase 79 (41-126) U/L Total Protein 5.5 L (6.2-8.2) g/dL Albumin 3.1 L (3.8-4.9) g/dL Assessment and Plan Plan: 43-year-old female with C. difficile colitis. Currently on oral vancomycin with ID evaluation and consultation. Denying any abdominal pain with no evidence of toxic megacolon. Stool occult is likely secondary to inflammatory process. Patient will benefit from colonoscopy at some point after resolution of C. difficile infection. No plan for current endoscopy. Will continue to monitor for any signs of worsening of C. difficile infection.
--- NOTE | 2024-04-09 09:25 | P.CONS ---
History of Present Illness - Reason for Consult Consult date: 04/08/24 C. difficile and sepsis Requesting physician: Skyla Nelson - Chief Complaint Diarrhea abdominal pain x 1 month - History of Present Illness Patient is a 43-year-old female with a past medical history significant for COPD presenting the hospital with nausea and diarrhea that the pain has been going on for the last 1 month patient did have a history of anti biotic exposure a month or 2 prior to that but that was for bacterial vaginosis patient has been using some [id number] stuff to help her diarrhea however did not help apparently patient has been evaluated by her physician and the patient did have a CT scan in the outpatient setting on 04/02/2024 we did shows fluid confined within descending colon no focal wall thickening patient did have persistent diarrhea and started having lower abdominal discomfort mostly on the left side describing it to be sharp colicky moderate at rest without any radiation for the patient presented to hospital on arrival to the ER the patient was running a fever of 102.5 F patient was tachycardic mildly hypotensive not requiring any pressor support no hypoxemia patient did have a white count of 22.8 repeat is 37.57 urine has been negative stool for C. difficile is positive influenza RSV COVID testing was negative chest x-ray reported negative he was started initially on IV vancomycin subsequently switched to oral Vanco infectious disease was consulted for further management of antibiotic therapy Review of Systems Positive point and negatives has been mentioned in the HPI, complete review of systems was performed and all other systems are negative Past Medical History Past Medical History: COPD Additional Past Medical History / Comment(s): LOW IRON History of Any Multi-Drug Resistant Organisms: C-DIFF Year Discovered:: 04/07/2024 MDRO Source:: stool Additional Past Surgical History / Comment(s): BENIGN CYST REMOVED FROM HEAD AND ARM Past Anesthesia/Blood Transfusion Reactions: No Reported Reaction Past Psychological History: Anxiety, Depression Additional Psychological History / Comment(s): HX OF DEPRESSION AND ANXIETY NOT CURRENTLY [place] Smoking Status: Vaper Past Alcohol Use History: Daily Past Drug Use History: Marijuana Additional Drug Use History / Comment(s): NONE CURRENTLY HX - Past Family History Father Family Medical History: Diabetes Mellitus, Hypertension, Myocardial Infarction ([place]) Additional Family Medical History / Comment(s): thyroid Ca, schizophrenia Mother Family Medical History: Diabetes Mellitus, Thyroid Disorder Medications and Allergies Home Medications Medication Instructions Recorded Confirmed Type Ferrous Sulfate [Feosol] 325 mg PO BID 04/02/24 04/07/24 History Multivit with Calcium,Iron,Min 1 tab PO DAILY 04/02/24 04/07/24 History [Women's Multivitamin] PARoxetine [Paxil] 20 mg PO DAILY 04/02/24 04/07/24 History Loperamide HCl [Imodium A-D] 2 - 4 mg PO QID PRN 04/07/24 04/07/24 History Allergies Allergy/AdvReac Type Severity Reaction Status Date / Time hazelnut Allergy Unknown Verified 04/07/24 11:59 Childhood Physical Exam Vitals: Vital Signs Temp Pulse Pulse Resp BP BP Pulse Ox 04/08/24 08:00 16 04/08/24 07:10 100.0 F H 93 16 105/61 100 04/08/24 00:49 98.6 F 92 16 119/70 100 04/07/24 21:50 98.5 F 92 16 116/72 96 04/07/24 20:46 97.5 F L 88 18 105/75 100 04/07/24 18:00 85 20 125/68 98 04/07/24 15:00 90 20 114/60 98 04/07/24 14:00 84 16 113/69 98 04/07/24 12:00 75 20 130/70 98 Intake and Output 04/07/24 04/08/24 04/08/24 22:59 06:59 14:59 Other: Voiding Method Toilet # Voids 5 # Bowel Movements 1 Weight 68.039 kg GENERAL DESCRIPTION: Middle-aged female lying in bed, no distress. No tachypnea or accessory muscle of respiration use. HEENT: Shows Pallor , no scleral icterus. Oral mucous membrane is dry. No pharyngeal erythema or thrush NECK: Trachea central, no thyromegaly. LUNGS: Unlabored breathing. Clear to auscultation anteriorly. No wheeze or cr ackle. HEART: S1, S2, regular rate and rhythm. No loud murmur ABDOMEN: Soft, mild tenderness EXTREMITIES: No edema of feet. SKIN: No rash, no masses palpable. NEUROLOGICAL: The patient is awake, alert, oriented x3, mood and affect normal. Results CBC & Chem 7: 04/08/24 06:48 04/08/24 06:48 Labs: Abnormal Lab Results - Last 24 Hours (Table) 04/07/24 04/07/24 04/07/24 Range/Units 09:38 11:23 14:00 WBC 22.9 H (3.8-10.6) k/uL Hgb 9.0 L (11.4-16.0) gm/dL Hct 29.4 L (34.0-46.0) % MCV 68.4 L (80.0-100.0) fL MCH 20.9 L (25.0-35.0) pg MCHC 30.5 L (31.0-37.0) g/dL RDW 17.5 H (11.5-15.5) % Plt Count 644 H (150-450) k/uL Neutrophils # 20.0 H (1.3-7.7) k/uL Lymphocytes # 0.8 L (1.0-4.8) k/uL Monocytes # 1.7 H (0-1.0) k/uL Sodium (135-145) mmol/L Chloride (96-109) mmol/L Anion Gap (4.00-12.00) mmol/L Calcium (8.7-10.3) mg/dL Total Protein (6.2-8.2) g/dL Albumin (3.8-4.9) g/dL Albumin/Globulin Ratio (1.60-3.17) Ratio Urine Appearance Cloudy H (Clear) Urine Protein 1+ H (Negative) Urine Ketones 1+ H (Negative) Urine WBC 10 H (0-5) /hpf Urine Bacteria Rare H (None) /hpf Urine Mucus Few H (None) /hpf C. difficile (EIA) Intrp Positive A (Negative) 04/08/24 Range/Units 06:48 WBC (3.8-10.6) k/uL Hgb (11.4-16.0) gm/dL Hct (34.0-46.0) % MCV (80.0-100.0) fL MCH (25.0-35.0) pg MCHC (31.0-37.0) g/dL RDW (11.5-15.5) % Plt Count (150-450) k/uL Neutrophils # (1.3-7.7) k/uL Lymphocytes # (1.0-4.8) k/uL Monocytes # (0-1.0) k/uL Sodium 133 L (135-145) mmol/L Chloride 95 L (96-109) mmol/L Anion Gap 14.80 H (4.00-12.00) mmol/L Calcium 8.4 L (8.7-10.3) mg/dL Total Protein 5.5 L (6.2-8.2) g/dL Albumin 3.1 L (3.8-4.9) g/dL Albumin/Globulin Ratio 1.29 L (1.60-3.17) Ratio Urine Appearance (Clear) Urine Protein (Negative) Urine Ketones (Negative) Urine WBC (0-5) /hpf Urine Bacteria (None) /hpf Urine Mucus (None) /hpf C. difficile (EIA) Intrp (Negative) Assessment and Plan (1) Sepsis Current Visit: Yes Status: Acute Code(s): A41.9 - SEPSIS, UNSPECIFIED ORGANISM SNOMED Code(s): 64851007 (2) Leukocytosis Current Visit: Yes Status: Acute Code(s): D72.829 - ELEVATED WHITE BLOOD CELL COUNT, UNSPECIFIED SNOMED Code(s): 684215700 (3) C. difficile diarrhea Current Visit: Yes Status: Acute Code(s): A04.72 - ENTEROCOLITIS D/T CLOSTRIDIUM DIFFICILE, NOT SPCF RECUR SNOMED Code(s): 8819829909332 Plan: 1patient presented to hospital with sepsis in this patient who did have fever elevated white count source is C. difficile colitis in this patient symptom has been going on for almost a month 2-we will increase the dose of vancomycin to 500 mg p.o. every 6 hours and discontinue Imodium to decrease risk of toxic megacolon 3-patient encouraged to increase her probiotic and yogurt intake 4-if persistent diarrhea will add Questran for symptomatic relief We will follow on clinical condition and cultures to further adjust medication if needed Thank you for this consultation we will follow the patient along with you Dictation was produced using [employer] dictation software. please excuse any grammatical, word or spelling errors. Time with Patient: Greater than 30
[2024-04-09 11:47] LABS: Anisocytosis Slight; HCT 28.2 % (34.0-46.0); HGB 8.3 gm/dL (11.4-16.0); Hypochromasia Marked; MCH 20.6 pg (25.0-35.0); MCHC 29.3 g/dL (31.0-37.0); MCV 70.3 fL (80.0-100.0); Mean Platelet Volume 7.5; Microcytosis Marked; Platelet Count 577 k/uL (150-450); Poikilocytosis Slight; RBC 4.01 m/uL (3.80-5.40); RDW 17.8 % (11.5-15.5); WBC 31.3 k/uL (3.8-10.6)
[2024-04-09 12:17] LABS: Band Neutrophils % 3 %; Eosinophils # (M) 0.31 k/uL (0-0.7); Lymphocytes # (M) 0.63 k/uL (1.0-4.8); Monocytes # (M) 1.57 k/uL (0-1.0); Neutrophils % (M) 89 %; Nucleated Red Blood Cells 0 /100 WBC (0-0); Total Cells Counted 100
--- NOTE | 2024-04-09 18:59 | P.PN ---
Progress Note - Text Progress Note Date: 04/09/24 CHIEF COMPLAINT: Abdominal pain HISTORY OF PRESENT ILLNESS: No acute events overnight. Abdominal pain is improved. Patient having less bowel movements. Tolerating CLD. PHYSICAL EXAM: VITAL SIGNS: Reviewed. GENERAL: Well-developed in no acute distress. ABDOMEN: slightly Distended. soft, minimal tenderness NEUROLOGIC: Alert and oriented. Cranial nerves II through XII grossly intact. ASSESSMENT: 1. C Diff Colitis. PLAN: Advanced to Regular Diet. Currently on oral vancomycin with ID evaluation and consultation. No evidence of toxic megacolon. Stool occult is likely secondary to inflammatory process. Patient will benefit from colonoscopy at some point after resolution of C. difficile infection. No plan for current endoscopy. Will continue to monitor for any signs of worsening of C. difficile infection. Hema Goodman DO [facility] [phone]
--- NOTE | 2024-04-09 21:43 | P.PN ---
Subjective Progress Note Date: 04/09/24 This is a pleasant 43-year-old female with medical history significant for COPD, anxiety/depression, daily vape use. Patient comes into the hospital after reporting a 1 month history of nausea and diarrhea. She also feels bloated and gassy. She then over the last couple days experiencing dark stools and abdominal discomfort mainly on the left side and had some mild abdominal tenderness. Patient has not reported fever but was found to have a temp of 102.5 on admission. Has been fatigued and states she "passed out" today while getting out of the shower. She has been following along with her family doctor for this diarrhea recommended yogurt and probiotics and patient has been doing that for the last 4 to 5 days. She is also on oral iron for iron deficiency anemia and states that her stools have been darker over the last couple days as well. Had an abdominal pelvis CT done on which reveals fluid identified within the distal colon and rectum consistent with reported history of diarrhea. No focal wall thickening or surrounding inflammatory changes. Large fibroid uterus which may contribute to patient's abdominal pain. On admission, patient was found to have C. difficile infection. Patient does report being on oral and vaginal metronidazole for BV, 2 to 3 months before she began having the diarrhea. Chest X-ray on admission reveals no acute cardiopulmonary process. Initial white blood cell count of 22.9, hemoglobin of 9.0, sodium level of 130, potassium 3.3, BUN of 7 creatinine of 0.88. 04/09/2024 Patient is seen in follow-up today continues to have multiple episodes of diarrhea although is lessening and abdominal pain is improving slightly. Patient continues with abdominal cramping and tenderness although improved from previous. Patient maintained on clear liquids able to tolerate and diet is being advanced per surgery with no plans of intervention at this time. They recommend outpatient follow-up with colonoscopy once cleared from C. difficile. Patient is continued on oral vancomycin with infectious disease following and will continue current regimen. Hold on initiating Imodium or Questran at this time and will discuss further with infectious disease. Will follow-up on repeat labs as white count remains elevated although is trending down and currently 31 today. Encouraged increase activity as tolerated. Review of systems: Constitutional: No reports of fatigue, fever, or chills Cardiovascular: No reports of chest pain or palpitations Respiratory: No reports of shortness of breath or cough GI: No reports of nausea, vomiting, reports continued loose stools and some abdominal cramping, but improved : No reports of dysuria or retention Neurovascular: No reports of weakness or numbness All medications have been reviewed PHYSICAL EXAMINATION: GENERAL: The patient is alert and oriented x3, not in any acute distress. Well developed, thin built HEENT: Pupils are round and equally reacting to light. EOMI. No scleral icterus. No conjunctival pallor. Normocephalic, atraumatic. No pharyngeal erythema. No thyromegaly. CARDIOVASCULAR: S1 and S2 present. No murmurs, rubs, or gallops. PULMONARY: Chest is clear to auscultation, no wheezing or crackles. ABDOMEN: Soft, mild abdominal tenderness, nondistended, normoactive bowel sounds. No palpable organomegaly. MUSCULOSKELETAL: No joint swelling or deformity. EXTREMITIES: No cyanosis, clubbing, or pedal edema. NEUROLOGICAL: Gross neurological examination did not reveal any focal deficits. SKIN: No rashes. Assessment: Diarrhea of 1 month with positive C. difficile Leukocytosis and fever with concern for sepsis on admission secondary to above History of iron deficiency anemia maintained on oral ferrous sulfate which is currently being held at this time Hyponatremia hypovolemic improved with IV fluids Hypokalemia secondary to continued diarrhea, improved after replacement Abnormal urinalysis no evidence for acute infection this is dehydrational History of COPD with no acute exacerbation History of anxiety/depression Daily vape use GI prophylaxis Full code Plan: Infectious disease following and patient is continued on oral vancomycin 500 mg 4 times daily. Patient continues to report multiple episodes of diarrhea although is lightening up and less frequent. Will discuss with infectious disease regarding possible Questran and/or Imodium. General surgery has jeremy luated the patient recommending outpatient follow-up with colonoscopy once C. difficile is resolved. Diet is being advanced to regular diet. Monitor electrolytes and replace per protocol as well as following up on repeat CBC to monitor white count. Continue IV fluids at a decreased rate of 75 mL/h. Consider discontinuing once diet is improved and less diarrhea Repeat labs ordered for a.m. Will discuss further with infectious disease regarding discharge planning hopefully in the next couple of days once diarrhea has improved, patient is tolerating diet, and white count has improved. The impression and plan of care has been dictated by Aminata Darling, Nurse Practitioner as directed. Dr. Nikunj MD I have performed a history and physical examination and medical decision making of this patient, discussed the same with the dictator, and agree with the dictators assessment and plan as written, documented as a scribe. Based on total visit time, I have performed more than 50% of this visit. Objective - Vital Signs Vital signs: Vital Signs Temp 100 F H 04/09/24 07:00 Pulse 87 04/09/24 07:00 Resp 16 04/09/24 07:00 BP 107/67 04/09/24 07:00 Pulse Ox 100 04/09/24 07:00 FiO2 Intake & Output 04/08/24 04/09/24 04/09/24 18:59 06:59 18:59 Intake Total 200 Balance 200 Weight 68.039 kg Intake: Oral 200 Other: Voiding Method Toilet Toilet # Voids 3 # Bowel Movements 2 - Labs CBC & Chem 7: 04/09/24 11:21 04/08/24 06:48 Labs: Abnormal Lab Results - Last 24 Hours (Table) 04/08/24 04/08/24 04/08/24 Range/Units 03:55 06:48 06:48 WBC 37.57 H (4.50-10.00) X 10*3/uL RBC 3.88 L (4.10-5.20) X 10*6/uL Hgb 7.8 L (12.0-15.0) g/dL Hct 26.5 L (37.2-46.3) % MCV 68.3 L (80.0-97.0) FL MCH 20.1 L (27.0-32.0) pg MCHC 29.4 L (32.0-37.0) g/dL RDW 19.4 H (11.5-14.5) % Plt Count 621 H (140-440) X 10*3/uL Immature Gran # 0.18 H (0.00-0.04) X 10*3/uL Neutrophils # 34.58 H (1.80-7.70) X 10*3/uL Lymphocytes # 0.88 L (0.90-5.00) X 10*3/uL Monocytes # 1.85 H (0.20-1.00) X 10*3/uL Eosinophils # 0.03 L (0.04-0.35) X 10*3/uL Elliptocytes 2+ A (None Seen) Sodium 133 L (135-145) mmol/L Chloride 95 L (96-109) mmol/L Anion Gap 14.80 H (4.00-12.00) mmol/L Calcium 8.4 L (8.7-10.3) mg/dL Total Protein 5.5 L (6.2-8.2) g/dL Albumin 3.1 L (3.8-4.9) g/dL Albumin/Globulin Ratio 1.29 L (1.60-3.17) Ratio Stool Occult Blood Positive H (Negative)
--- NOTE | 2024-04-09 23:14 | P.PN ---
Subjective Progress Note Date: 04/09/24 Principal diagnosis: Reason for follow-up C. difficile colitis Patient is a 43-year-old female with a past medical history significant for COPD presenting the hospital with nausea and diarrhea that the pain has been going on for the last 1 month patient did have a history of antibiotic exposure a month or 2 prior to that, patient be diagnosed with C. difficile colitis prompting this consultation. For today's evaluation that is 04/09/2024, the patient continues to be afebrile, the patient is on room air and breathing comfortably, the Pt denies having any chest pain or cough, the patient denies having any nausea or vomiting abdominal pain slightly decreased diarrhea slightly slowed on still watery. Patient white count is down to 31.3 no creatinine was done today Objective - Vital Signs Vital signs: Vital Signs Temp 99 F 04/09/24 09:30 Pulse 87 04/09/24 07:00 Resp 16 04/09/24 08:00 BP 107/67 04/09/24 07:00 Pulse Ox 100 04/09/24 07:00 FiO2 Intake & Output 04/08/24 04/09/24 04/09/24 18:59 06:59 18:59 Intake Total 200 Balance 200 Weight 68.039 kg Intake: Oral 200 Other: Voiding Method Toilet Toilet Toilet # Voids 3 # Bowel Movements 2 - Exam GENERAL DESCRIPTION: Middle-age female up in bed in no distress RESPIRATORY SYSTEM: Unlabored breathing , decreased breath sounds at bases HEART: S1 S2 regular rate and rhythm , ABDOMEN: Soft , no tenderness EXTREMITIES: No edema feet - Labs CBC & Chem 7: 04/09/24 11:21 04/08/24 06:48 Labs: Abnormal Lab Results - Last 24 Hours (Table) 04/08/24 04/09/24 Range/Units 03:55 11:21 WBC 31.3 H (3.8-10.6) k/uL Hgb 8.3 L (11.4-16.0) gm/dL Hct 28.2 L (34.0-46.0) % MCV 70.3 L (80.0-100.0) fL MCH 20.6 L (25.0-35.0) pg MCHC 29.3 L (31.0-37.0) g/dL RDW 17.8 H (11.5-15.5) % Plt Count 577 H (150-450) k/uL Neutrophils # (Manual) 28.70 H (1.3-7.7) k/uL Lymphocytes # (Manual) 0.63 L (1.0-4.8) k/uL Monocytes # (Manual) 1.57 H (0-1.0) k/uL Stool Occult Blood Positive H (Negative) Assessment and Plan (1) Sepsis Current Visit: Yes Status: Acute Code(s): A41.9 - SEPSIS, UNSPECIFIED ORGANISM SNOMED Code(s): 12979828 (2) Leukocytosis Current Visit: Yes Status: Acute Code(s): D72.829 - ELEVATED WHITE BLOOD CELL COUNT, UNSPECIFIED SNOMED Code(s): 495209346 (3) C. difficile diarrhea Current Visit: Yes Status: Acute Code(s): A04.72 - ENTEROCOLITIS D/T CLOSTRIDIUM DIFFICILE, NOT SPCF RECUR SNOMED Code(s): 5841742899656 Plan: 1patient presented to hospital with sepsis in this patient who did have fever elevated white count source is C. difficile colitis in this patient symptom has been going on for almost a month before presentation to the hospital 2-w patient to continue with vancomycin 500 mg p.o. every 6 hours 3-patient encouraged to increase her probiotic and yogurt intake 4-will add Questran because of persistent diarrhea for symptomatic relief Dictation was produced using [employer] dictation software. please excuse any grammatical, word or spelling errors. Time with Patient: Less than 30
[2024-04-10] MEDS: CHOLESTYRAMINE (WITH SUGAR) 4 GM PACKET PO SCH (08:27)
[2024-04-10 09:20] LABS: Blood Urea Nitrogen 6.6 mg/dL (9.0-27.0); Calcium 7.9 mg/dL (8.7-10.3); Carbon Dioxide 24.7 mmol/L (21.6-31.8); Chloride 97 mmol/L (96-109); Glucose 102 mg/dL (70-110); Magnesium 2.1 mg/dL (1.5-2.4); Potassium 3.1 mmol/L (3.5-5.5); Sodium 134 mmol/L (135-145)
[2024-04-10 10:47] LABS: Basophils # (A) 0.09 X 10*3/uL (0.00-0.10); Basophils % (A) 0.5 %; Eosinophils # (A) 0.29 X 10*3/uL (0.04-0.35); Eosinophils % (A) 1.5 %; HCT 23.3 % (37.2-46.3); HGB 6.7 g/dL (12.0-15.0); Lymphocytes # (A) 1.17 X 10*3/uL (0.90-5.00); Lymphocytes % (A) 6.1 %; MCH 19.9 pg (27.0-32.0); MCHC 28.8 g/dL (32.0-37.0); MCV 69.1 FL (80.0-97.0); Mean Platelet Volume 10.2 FL (9.5-12.2); Monocytes # (A) 1.23 X 10*3/uL (0.20-1.00); Monocytes % (A) 6.4 %; NRBC Per 100 WBC 0 X 10*3/uL (0.00-0.01); Neutrophils # (A) 16.14 X 10*3/uL (1.80-7.70); Neutrophils % (A) 84.6 %; Platelet Count 435 X 10*3/uL (140-440); RBC 3.37 X 10*6/uL (4.10-5.20); RDW 20.1 % (11.5-14.5)
[2024-04-10] MEDS: POTASSIUM CHLORIDE ER 20 MEQ TAB.ER PO SCH (13:16)
--- NOTE | 2024-04-10 13:38 | P.PN ---
Progress Note - Text Progress Note Date: 04/10/24 CHIEF COMPLAINT: Abdominal pain HISTORY OF PRESENT ILLNESS: No acute events overnight. Abdominal pain is improved. Patient having less bowel movements. Tolerating Regular Diet. PHYSICAL EXAM: VITAL SIGNS: Reviewed. GENERAL: Well-developed in no acute distress. ABDOMEN: slightly Distended. soft, minimal tenderness NEUROLOGIC: Alert and oriented. Cranial nerves II through XII grossly intact. ASSESSMENT: 1. C Diff Colitis. PLAN: Advanced to Regular Diet. Currently on oral vancomycin with ID evaluation and consultation. No evidence of toxic megacolon. Stool occult is likely secondary to inflammatory process. Patient will benefit from colonoscopy at some point after resolution of C. difficile infection. No plan for current endoscopy. Will continue to monitor for any signs of worsening of C. difficile infection. Patient will be transfused 1 unit PRBCs Hema Goodman [facility] [phone]
--- NOTE | 2024-04-10 17:12 | P.PN ---
Subjective Progress Note Date: 04/10/24 (\\) his is a pleasant 43-year-old female with medical history significant for COPD, anxiety/depression, daily vape use. Patient comes into the hospital after reporting a 1 month history of nausea and diarrhea. She also feels bloated and gassy. She then over the last couple days experiencing dark stools and abdominal discomfort mainly on the left side and had some mild abdominal tenderness. Patient has not reported fever but was found to have a temp of 102.5 on admission. Has been fatigued and states she "passed out" today while getting out of the shower. She has been following along with her family doctor for this diarrhea recommended yogurt and probiotics and patient has been doing that for the last 4 to 5 days. She is also on oral iron for iron deficiency anemia and states that her stools have been darker over the last couple days as well. Had an abdominal pelvis CT done on which reveals fluid identified within the distal colon and rectum consistent with reported history of diarrhea. No focal wall thickening or surrounding inflammatory changes. Large fibroid uterus which may contribute to patient's abdominal pain. On admission, patient was found to have C. difficile infection. Patient does report being on oral and vaginal metronidazole for BV, 2 to 3 months before she began having the diarrhea. Chest X-ray on admission reveals no acute cardiopulmonary process. Initial white blood cell count of 22.9, hemoglobin of 9.0, sodium level of 130, potassium 3.3, BUN of 7 creatinine of 0.88. 04/09/2024 Patient is seen in follow-up today continues to have multiple episodes of diarrhea although is lessening and abdominal pain is improving slightly. Patient continues with abdominal cramping and tenderness although improved from previous. Patient maintained on clear liquids able to tolerate and diet is being advanced per surgery with no plans of intervention at this time. They recommend outpatient follow-up with colonoscopy once cleared from C. difficile. Patient is continued on oral vancomycin with infectious disease following and will continue current regimen. Hold on initiating Imodium or Questran at this time and will discuss further with infectious disease. Will follow-up on repeat labs as white count remains elevated although is trending down and currently 31 today. Encouraged increase activity as tolerated. 04/10/2024 Patient evaluated today sitting up at the bedside. She is reporting mild abdominal discomfort. Has had 3 episodes of diarrhea so far today. Questran has been added. Remains on oral vancomycin. Patient reports shortness of breath and difficulty taking a deep breath. General surgery following with no plans for endoscopic evaluation at this time. Recommending outpatient colonoscopy. Hemoglobin down to 6.7. today. Sodium 134, potassium 3.1, magnesium 2.1. BUN 6.6, creatinine 0.6. Overall fever is improving. Review of systems: Constitutional: No reports of fatigue, fever, or chills Cardiovascular: No reports of chest pain or palpitations Respiratory: No reports of shortness of breath or cough GI: No reports of nausea, vomiting, reports continued loose stools and some abdominal cramping, but improved : No reports of dysuria or retention Neurovascular: No reports of weakness or numbness All medications have been reviewed PHYSICAL EXAMINATION: GENERAL: The patient is alert and oriented x3, not in any acute distress. Well developed, thin built HEENT: Pupils are round and equally reacting to light. EOMI. No scleral icterus. No conjunctival pallor. Normocephalic, atraumatic. No pharyngeal erythema. No thyromegaly. CARDIOVASCULAR: S1 and S2 present. No murmurs, rubs, or gallops. PULMONARY: Chest is clear to auscultation, no wheezing or crackles. ABDOMEN: Soft, mild abdominal tenderness, nondistended, normoactive bowel sounds. No palpable organomegaly. MUSCULOSKELETAL: No joint swelling or deformity. EXTREMITIES: No cyanosis, clubbing, or pedal edema. NEUROLOGICAL: Gross neurological examination did not reveal any focal deficits. SKIN: No rashes. Assessment: Diarrhea of 1 month with positive C. difficile Leukocytosis and fever with concern for sepsis on admission secondary to above History of iron deficiency anemia maintained on oral ferrous sulfate which is currently being held at this time Hyponatremia hypovolemic improved with IV fluids Hypokalemia secondary to continued diarrhea, improved after replacement Abnormal urinalysis no evidence for acute infection this is dehydrational History of COPD with no acute exacerbation History of anxiety/depression Daily vape use GI prophylaxis Full code Plan: Infectious disease following and patient is continued on oral vancomycin 500 mg 4 times daily. Patient continues to report multiple episodes of diarrhea although is lightening up and less frequent.Patient has been initiated on questran. General surgery has evaluated the patient recommending outpatient follow-up with colonoscopy once C. difficile is resolved. Diet is being advanced to regular diet. Patient to receive 1 unit of PRBC today monitor for rectal bleeding and repeat C BC tomorrow. Monitor electrolytes and replace per protocol as well as following up on repeat CBC to monitor white count. Continue IV fluids at a decreased rate of 75 mL/h. Consider discontinuing once diet is improved and less diarrhea Repeat labs ordered for a.m. Will discuss further with infectious disease regarding discharge planning hopefully in the next couple of days once diarrhea has improved, patient is tolerating diet, and white count has improved. Chest xray for shortness of breath ordered, also check D-Dimer The impression and plan of care has been dictated by Skyla Nelson Nurse Practitioner as directed. Dr. Nikunj MD I have performed a history and physical examination and medical decision making of this patient, discussed the same with the dictator, and agree with the dictators assessment and plan as written, documented as a scribe. Based on total visit time, I have performed more than 50% of this visit. Objective - Vital Signs Vital signs: Vital Signs Temp 99.4 F 04/10/24 14:15 Pulse 83 04/10/24 14:15 Resp 17 04/10/24 14:15 BP 112/66 04/10/24 14:15 Pulse Ox 100 04/10/24 14:15 FiO2 Intake & Output 04/09/24 04/10/24 04/10/24 18:59 06:59 18:59 Intake Total 221 Balance 221 Intake: Oral 221 Other: Voiding Method Toilet Toilet Toilet # Voids 3 2 5 # Bowel Movements 1 3 - Labs CBC & Chem 7: 04/10/24 04:34 04/10/24 04:34 Labs: Abnormal Lab Results - Last 24 Hours (Table) 04/10/24 04/10/24 04/10/24 Range/Units 04:34 04:34 11:55 WBC 19.10 H (4.50-10.00) X 10*3/uL RBC 3.37 L (4.10-5.20) X 10*6/uL Hgb 6.7 A* (12.0-15.0) g/dL Hct 23.3 L (37.2-46.3) % MCV 69.1 L (80.0-97.0) FL MCH 19.9 L (27.0-32.0) pg MCHC 28.8 L (32.0-37.0) g/dL RDW 20.1 H (11.5-14.5) % Immature Gran # 0.18 H (0.00-0.04) X 10*3/uL Neutrophils # 16.14 H (1.80-7.70) X 10*3/uL Monocytes # 1.23 H (0.20-1.00) X 10*3/uL Sodium 134 L (135-145) mmol/L Potassium 3.1 L (3.5-5.5) mmol/L Anion Gap 12.30 H (4.00-12.00) mmol/L BUN 6.6 L (9.0-27.0) mg/dL BUN/Creatinine Ratio 11.00 L (12.00-20.00) Ratio Calcium 7.9 L (8.7-10.3) mg/dL Crossmatch See Detail Assessment and Plan Time with Patient: Less than 30
--- NOTE | 2024-04-10 18:27 | XR ---
EXAMINATION TYPE: XR chest 2V DATE OF EXAM: 04/10/2024 6:23 PM COMPARISON: Chest radiographs from 04/07/2024 CLINICAL INDICATION: Female, 43 years old with history of short of breath; [facility] TECHNIQUE: XR chest 2V Frontal and lateral views of the chest. FINDINGS: Lungs/Pleura: There is no evidence of pleural effusion, focal consolidation, or pneumothorax. Pulmonary vascularity: Unremarkable. Heart/mediastinum: Cardiomediastinal silhouette is unremarkable. Musculoskeletal: No acute osseous pathology. Other findings: None IMPRESSION: No acute cardiopulmonary disease/process. [facility], , 04/10/2024 6:24 PM
--- NOTE | 2024-04-10 20:43 | CT ---
EXAMINATION TYPE: CT angio chest DATE OF EXAM: 04/10/2024 8:33 PM COMPARISON: Chest radiograph from same day. CLINICAL INDICATION: Female, 43 years old with history of elevated D dimer, R/O PE; Elevated D dimer, R/O PE. TECHNIQUE/CONTRAST: CTA scan of the thorax is performed with IV Contrast, patient injected with 100 ml mL of Isovue 370, MIP images are created and reviewed these are created on a separate workstation.. CT DLP: 222.2 mGycm, Automated exposure control for dose reduction was used. FINDINGS: Lungs/Pleura: No evidence of focal consolidation, pleural effusion or pneumothorax. Airway: Large airways are patent. Heart: Heart is within normal limits for size. Vasculature: There is no evidence for a filling defect within the pulmonary vasculature to suggest ac hughes pulmonary embolism. The pulmonary artery is of normal size. Mediastinum: No gross evidence of adenopathy. Musculoskeletal: No acute osseous abnormalities Soft Tissues/lymph nodes: Unremarkable. Lower neck: No significant findings. Upper Abdomen: No significant findings. IMPRESSION: No evidence of pulmonary embolism. Follow up recommendations for incidental pulmonary nodules, if there are any, are per [employer] or [employer]. https://radiopaedia.org/articles/hciolwywub-rjuigir-oppspoiaq-zvicpp-fefilhlqutflrgt-9?lang=us [facility], , 04/10/2024 8:40 PM
--- NOTE | 2024-04-10 22:21 | P.PN ---
Subjective Progress Note Date: 04/10/24 Principal diagnosis: Reason for follow-up C. difficile colitis Patient is a 43-year-old female with a past medical history significant for COPD presenting the hospital with nausea and diarrhea that the pain has been going on for the last 1 month patient did have a history of antibiotic exposure a month or 2 prior to that, patient be diagnosed with C. difficile colitis prompting this consultation. For today's evaluation that is 04/10/2024, patient did not have any fever and denies any chills, patient is breathing comfortably on room air, patient with no chest pain or cough patient lower abdominal pain has decreased intensity denies nausea vomiting diarrhea has slowed down. Patient white count is down to 19.10 creatinine 0.6 Objective - Vital Signs Vital signs: Vital Signs Temp 99.7 F H 04/10/24 07:25 Pulse 90 04/10/24 07:25 Resp 17 04/10/24 08:00 BP 121/63 04/10/24 07:25 Pulse Ox 99 04/10/24 07:25 FiO2 Intake & Output 04/09/24 04/10/24 04/10/24 18:59 06:59 18:59 Intake Total 221 Balance 221 Intake: Oral 221 Other: Voiding Method Toilet Toilet Toilet # Voids 3 2 # Bowel Movements 1 - Exam GENERAL DESCRIPTION: Middle-age female up in bed in no distress RESPIRATORY SYSTEM: Unlabored breathing , decreased breath sounds at bases HEART: S1 S2 regular rate and rhythm , ABDOMEN: Soft , no tenderness EXTREMITIES: No edema feet - Labs CBC & Chem 7: 04/10/24 04:34 04/10/24 04:34 Labs: Abnormal Lab Results - Last 24 Hours (Table) 04/10/24 04/10/24 Range/Units 04:34 04:34 WBC 19.10 H (4.50-10.00) X 10*3/uL RBC 3.37 L (4.10-5.20) X 10*6/uL Hgb 6.7 A* (12.0-15.0) g/dL Hct 23.3 L (37.2-46.3) % MCV 69.1 L (80.0-97.0) FL MCH 19.9 L (27.0-32.0) pg MCHC 28.8 L (32.0-37.0) g/dL RDW 20.1 H (11.5-14.5) % Immature Gran # 0.18 H (0.00-0.04) X 10*3/uL Neutrophils # 16.14 H (1.80-7.70) X 10*3/uL Monocytes # 1.23 H (0.20-1.00) X 10*3/uL Sodium 134 L (135-145) mmol/L Potassium 3.1 L (3.5-5.5) mmol/L Anion Gap 12.30 H (4.00-12.00) mmol/L BUN 6.6 L (9.0-27.0) mg/dL BUN/Creatinine Ratio 11.00 L (12.00-20.00) Ratio Calcium 7.9 L (8.7-10.3) mg/dL Assessment and Plan (1) Sepsis Current Visit: Yes Status: Acute Code(s): A41.9 - SEPSIS, UNSPECIFIED ORGANISM SNOMED Code(s): 56086273 (2) Leukocytosis Current Visit: Yes Status: Acute Code(s): D72.829 - ELEVATED WHITE BLOOD CELL COUNT, UNSPECIFIED SNOMED Code(s): 478515481 (3) C. difficile diarrhea Current Visit: Yes Status: Acute Code(s): A04.72 - ENTEROCOLITIS D/T CLOSTRIDIUM DIFFICILE, NOT SPCF RECUR SNOMED Code(s): 8232168537093 Plan: 1patient presented to hospital with sepsis in this patient who did have fever elevated white count source is C. difficile colitis in this patient symptom has been going on for almost a month before presentation to the hospital 2--patient is afebrile the patient white count is trending down down to 19,000 3patient will be treated with vancomycin Questran and encouraged to increase probiotic yogurt intake Dictation was produced using [employer] software. please excuse any grammatical, word or spelling errors. Time with Patient: Less than 30
[2024-04-11 11:30] LABS: Basophils # (A) 0.03 X 10*3/uL (0.00-0.10); Basophils % (A) 0.2 %; Eosinophils # (A) 0.22 X 10*3/uL (0.04-0.35); Eosinophils % (A) 1.6 %; HGB 7.4 g/dL (12.0-15.0); Lymphocytes # (A) 1.02 X 10*3/uL (0.90-5.00); Lymphocytes % (A) 7.4 %; MCH 20.6 pg (27.0-32.0); MCHC 28.5 g/dL (32.0-37.0); MCV 72.4 FL (80.0-97.0); Mean Platelet Volume 10.5 FL (9.5-12.2); Monocytes # (A) 1.33 X 10*3/uL (0.20-1.00); Monocytes % (A) 9.6 %; NRBC Per 100 WBC 0 X 10*3/uL (0.00-0.01); Neutrophils # (A) 11.03 X 10*3/uL (1.80-7.70); Platelet Count 440 X 10*3/uL (140-440); RBC 3.59 X 10*6/uL (4.10-5.20); RDW 20.6 % (11.5-14.5)
[2024-04-11 12:52] LABS: BUN/Creat Ratio 7.17 Ratio (12.00-20.00); Blood Urea Nitrogen 4.3 mg/dL (9.0-27.0); Calcium 8.3 mg/dL (8.7-10.3); Carbon Dioxide 24.8 mmol/L (21.6-31.8); Chloride 102 mmol/L (96-109); Glucose 116 mg/dL (70-110); Magnesium 1.8 mg/dL (1.5-2.4); Potassium 3.7 mmol/L (3.5-5.5); Sodium 137 mmol/L (135-145)
--- NOTE | 2024-04-11 15:23 | P.PN ---
Subjective Progress Note Date: 04/11/24 Principal diagnosis: Reason for follow-up C. difficile colitis Patient is a 43-year-old female with a past medical history significant for COPD presenting the hospital with nausea and diarrhea that the pain has been going on for the last 1 month patient did have a history of antibiotic exposure a month or 2 prior to that, patient be diagnosed with C. difficile colitis prompting this consultation. For today's evaluation that is 04/11/2024, Patient is afebrile patient is currently on room air and denies having any shortness of breath, the patient denies any chest pain or cough, the patient denies any nausea vomiting abdominal pain has decreased in intensity and diarrhea slowing down still watery. Patient white count is down to 13.80, creatinine 0.6 Objective - Vital Signs Vital signs: Vital Signs Temp 99.4 F 04/11/24 07:19 Pulse 92 04/11/24 07:19 Resp 16 04/11/24 08:00 BP 122/72 04/11/24 07:19 Pulse Ox 100 04/11/24 07:19 FiO2 Intake & Output 04/10/24 04/11/24 04/11/24 18:59 06:59 18:59 Intake Total 310 Balance 310 Intake: Blood Product 310 Rc As-1 Unit 310 [id number] Other: Voiding Method Toilet Toilet Toilet # Voids 5 1 # Bowel Movements 3 - Exam GENERAL DESCRIPTION: Middle-age female up in bed in no distress RESPIRATORY SYSTEM: Unlabored breathing , decreased breath sounds at bases HEART: S1 S2 regular rate and rhythm , ABDOMEN: Soft , no tenderness EXTREMITIES: No edema feet - Labs CBC & Chem 7: 04/11/24 03:31 04/11/24 03:31 Labs: Abnormal Lab Results - Last 24 Hours (Table) 04/10/24 04/10/24 04/11/24 Range/Units 11:55 17:26 03:31 WBC 13.80 H (4.50-10.00) X 10*3/uL RBC 3.59 L (4.10-5.20) X 10*6/uL Hgb 7.4 L (12.0-15.0) g/dL Hct 26.0 L (37.2-46.3) % MCV 72.4 L (80.0-97.0) FL MCH 20.6 L (27.0-32.0) pg MCHC 28.5 L (32.0-37.0) g/dL RDW 20.6 H (11.5-14.5) % Immature Gran # 0.17 H (0.00-0.04) X 10*3/uL Neutrophils # 11.03 H (1.80-7.70) X 10*3/uL Monocytes # 1.33 H (0.20-1.00) X 10*3/uL D-Dimer >34.10 H (<0.60) mg/L FEU BUN (9.0-27.0) mg/dL BUN/Creatinine Ratio (12.00-20.00) Ratio Glucose (70-110) mg/dL Calcium (8.7-10.3) mg/dL Crossmatch See Detail 04/11/24 Range/Units 03:31 WBC (4.50-10.00) X 10*3/uL RBC (4.10-5.20) X 10*6/uL Hgb (12.0-15.0) g/dL Hct (37.2-46.3) % MCV (80.0-97.0) FL MCH (27.0-32.0) pg MCHC (32.0-37.0) g/dL RDW (11.5-14.5) % Immature Gran # (0.00-0.04) X 10*3/uL Neutrophils # (1.80-7.70) X 10*3/uL Monocytes # (0.20-1.00) X 10*3/uL D-Dimer (<0.60) mg/L FEU BUN 4.3 L (9.0-27.0) mg/dL BUN/Creatinine Ratio 7.17 L (12.00-20.00) Ratio Glucose 116 H (70-110) mg/dL Calcium 8.3 L (8.7-10.3) mg/dL Crossmatch Assessment and Plan (1) Sepsis Current Visit: Yes Status: Acute Code(s): A41.9 - SEPSIS, UNSPECIFIED ORGAN ISM SNOMED Code(s): 00218614 (2) Leukocytosis Current Visit: Yes Status: Acute Code(s): D72.829 - ELEVATED WHITE BLOOD CELL COUNT, UNSPECIFIED SNOMED Code(s): 747902653 (3) C. difficile diarrhea Current Visit: Yes Status: Acute Code(s): A04.72 - ENTEROCOLITIS D/T CLOSTRIDIUM DIFFICILE, NOT SPCF RECUR SNOMED Code(s): 1878318267332 Plan: 1patient presented to hospital with sepsis in this patient who did have fever elevated white count source is C. difficile colitis in this patient symptom has been going on for almost a month before presentation to the hospital 2--patient is afebrile the patient white count is trending down down to 19,000 3patient white count is slowly trending down still having diarrhea though slow down, patient will be continued on vancomycin Questran and encouraged to increase probiotic yogurt intake Dictation was produced using [employer] dictation software. please excuse any grammatical, word or spelling errors. Time with Patient: Less than 30
--- NOTE | 2024-04-11 16:08 | P.PN ---
Progress Note - Text Progress Note Date: 04/11/24 HISTORY OF PRESENT ILLNESS: No acute events overnight. Abdominal pain is improved. Patient having less bowel movements. Tolerating Regular Diet. PHYSICAL EXAM: VITAL SIGNS: Reviewed. GENERAL: Well-developed in no acute distress. ABDOMEN: slightly Distended. soft, minimal tenderness NEUROLOGIC: Alert and oriented. Cranial nerves II through XII grossly intact. ASSESSMENT: 1. C Diff Colitis. PLAN: Advanced to Regular Diet. Currently on oral vancomycin with ID evaluation and consultation. No evidence of toxic megacolon. Stool occult is likely secondary to inflammatory process. Patient will benefit from colonoscopy at some point after resolution of C. difficile infection. No plan for current endoscopy. Will continue to monitor for any signs of worsening of C. difficile infection. Patient transfused 1 unit PRBCs yesterday and responded well. Hema Goodman DO [facility] [phone]
[2024-04-11] MEDS: SODIUM FERRIC GLUCONAT-SUCROSE 125 MG in SODIUM CHLORIDE 0.9% 100 ML IVPB ONE (20:51)
--- NOTE | 2024-04-12 04:24 | P.PN ---
Subjective Progress Note Date: 04/11/24 his is a pleasant 43-year-old female with medical history significant for COPD, anxiety/depression, daily vape use. Patient comes into the hospital after reporting a 1 month history of nausea and diarrhea. She also feels bloated and gassy. She then over the last couple days experiencing dark stools and abdominal discomfort mainly on the left side and had some mild abdominal tenderness. Patient has not reported fever but was found to have a temp of 102.5 on admission. Has been fatigued and states she "passed out" today while getting out of the shower. She has been following along with her family doctor for this diarrhea recommended yogurt and probiotics and patient has been doing that for the last 4 to 5 days. She is also on oral iron for iron deficiency anemia and states that her stools have been darker over the last couple days as well. Had an abdominal pelvis CT done on which reveals fluid identified within the distal colon and rectum consistent with reported history of diarrhea. No focal wall thickening or surrounding inflammatory changes. Large fibroid uterus which may contribute to patient's abdominal pain. On admission, patient was found to have C. difficile infection. Patient does report being on oral and vaginal metronidazole for BV, 2 to 3 months before she began having the diarrhea. Chest X-ray on admission reveals no acute cardiopulmonary process. Initial white blood cell count of 22.9, hemoglobin of 9.0, sodium level of 130, potassium 3.3, BUN of 7 creatinine of 0.88. 04/09/2024 Patient is seen in follow-up today continues to have multiple episodes of diarrhea although is lessening and abdominal pain is improving slightly. Patient continues with abdominal cramping and tenderness although improved from previous. Patient maintained on clear liquids able to tolerate and diet is being advanced per surgery with no plans of intervention at this time. They recommend outpatient follow-up with colonoscopy once cleared from C. difficile. Patient is continued on oral vancomycin with infectious disease following and will continue current regimen. Hold on initiating Imodium or Questran at this time and will discuss further with infectious disease. Will follow-up on repeat labs as white count remains elevated although is trending down and currently 31 today. Encouraged increase activity as tolerated. 04/10/2024 Patient evaluated today sitting up at the bedside. She is reporting mild abdominal discomfort. Has had 3 episodes of diarrhea so far today. Questran has been added. Remains on oral vancomycin. Patient reports shortness of breath and difficulty taking a deep breath. General surgery following with no plans for endoscopic evaluation at this time. Recommending outpatient colonoscopy. Hemoglobin down to 6.7. today. Sodium 134, potassium 3.1, magnesium 2.1. BUN 6.6, creatinine 0.6. Overall fever is improving. 04/11/2024 Patient is seen and evaluated in follow-up today with infectious disease and general surgery. Patient is oral Vanco and has been started on Questran for C. difficile colitis. Patient is s/p 1 unit of PRBC and hemoglobin is above 7 with no active bleeding noted. Will follow-up on repeat labs and transfuse if 7 or less. Patient reports has history of anemia with iron deficiency and will give a dose of IV iron. Patient reports this morning she finally tolerated and had some regular food. Patient is continued with frequent bowel movements although less frequent to be in liquid form. Encourage increase activity as tolerated. Patient is afebrile and white count is trending down. Review of systems: Constitutional: No reports of fatigue, fever, or chills Cardiovascular: No reports of chest pain or palpitations Respiratory: No reports of shortness of breath or cough GI: No reports of nausea, vomiting, reports continued loose stools but less frequent : No reports of dysuria or retention Neurovascular: No reports of weakness or numbness All medications have been reviewed PHYSICAL EXAMINATION: GENERAL: The patient is alert and oriented x3, not in any acute distress. Well developed, thin built HEENT: Pupils are round and equally reacting to light. EOMI. No scleral icterus. No conjunctival pallor. Normocephalic, atraumatic. No pharyngeal erythema. No thyromegaly. CARDIOVASCULAR: S1 and S2 present. No murmurs, rubs, or gallops. PULMONARY: Chest is clear to auscultation, no wheezing or crackles. ABDOMEN: Soft, mild abdominal tenderness, nondistended, normoactive bowel sounds. No palpable organomegaly. MUSCULOSKELETAL: No joint swelling or deformity. EXTREMITIES: No cyanosis, clubbing, or pedal edema. NEUROLOGICAL: Gross neurological examination did not reveal any focal deficits. SKIN: No rashes. Assessment: Diarrhea of 1 month with positive C. difficile Leukocytosis and fever with concern for sepsis on admission secondary to above History of iron deficiency anemia maintained on oral ferrous sulfate which is currently being held at this time Hyponatremia hypovolemic improved with IV fluids Elevated D-dimer, PE ruled out Hypokalemia secondary to continued diarrhea, improved after replacement Abnormal urinalysis no evidence for acute infection this is dehydrational History of COPD with no acute exacerbation History of anxiety/depression Daily vape use GI prophylaxis Full code Plan: Infectious disease following and patient is continued on oral vancomycin 500 mg 4 times daily. Patient continues to report multiple episodes of diarrhea although is lightening up and less frequent. Patient has been initiated on questran. General surgery has evaluated the patient recommending outpatient follow-up with colonoscopy once C. difficile is resolved. Diet is being advanced to regular diet. Patient to receive 1 unit of PRBC yesterday and hemoglobin today is above 7. Monitor for rectal bleeding and repeat CBC tomorrow. Monitor electrolytes and replace per protocol as well as following up on repeat CBC to monitor white count. White count is trending down. Continue IV fluids at a decreased rate of 75 mL/h. Consider discontinuing once diet is improved and less diarrhea Repeat labs ordered for a.m. Chest xray for shortness of breath ordered, also check D-Dimer. D-dimer was elevated and CT was done with ruled out PE Continue current regimen and will discuss with consultations regarding discharge planning possibly in the next 24 to 48 hours The impression and plan of care has been dictated by Aminata Darling, Nurse Practitioner as directed. Dr. Nikunj MD I have performed a history and physical examination and medical decision making of this patient, discussed the same with the dictator, and agree with the dictators assessment and plan as written, documented as a scribe. Based on total visit time, I have performed more than 50% of this visit. Objective - Vital Signs Vital signs: Vital Signs Temp 98.2 F 04/11/24 01:38 Pulse 91 04/11/24 01:38 Resp 16 04/11/24 01:38 BP 114/65 04/11/24 01:38 Pulse Ox 100 04/11/24 01:38 FiO2 Intake & Output 04/10/24 04/10/24 04/11/24 06:59 18:59 06:59 Intake Total 310 Balance 310 Intake: Blood Product 310 Rc As-1 Unit 310 [id number] Other: Voiding Method Toilet Toilet Toilet # Voids 2 5 1 # Bowel Movements 1 3 - Labs CBC & Chem 7: 04/11/24 03:31 04/11/24 03:31 Labs: Abnormal Lab Results - Last 24 Hours (Table) 04/10/24 04/10/24 04/10/24 Range/Units 04:34 04:34 11:55 WBC 19.10 H (4.50-10.00) X 10*3/uL RBC 3.37 L (4.10-5.20) X 10*6/uL Hgb 6.7 A* (12.0-15.0) g/dL Hct 23.3 L (37.2-46.3) % MCV 69.1 L (80.0-97.0) FL MCH 19.9 L (27.0-32.0) pg MCHC 28.8 L (32.0-37.0) g/dL RDW 20.1 H (11.5-14.5) % Immature Gran # 0.18 H (0.00-0.04) X 10*3/uL Neutrophils # 16.14 H (1.80-7.70) X 10*3/uL Monocytes # 1.23 H (0.20-1.00) X 10*3/uL D-Dimer (<0.60) mg/L FEU Sodium 134 L (135-145) mmol/L Potassium 3.1 L (3.5-5.5) mmol/L Anion Gap 12.30 H (4.00-12.00) mmol/L BUN 6.6 L (9.0-27.0) mg/dL BUN/Creatinine Ratio 11.00 L (12.00-20.00) Ratio Calcium 7.9 L (8.7-10.3) mg/dL Crossmatch See Detail 04/10/24 Range/Units 17:26 WBC (4.50-10.00) X 10*3/uL RBC (4.10-5.20) X 10*6/uL Hgb (12.0-15.0) g/dL Hct (37.2-46.3) % MCV (80.0-97.0) FL MCH (27.0-32.0) pg MCHC (32.0-37.0) g/dL RDW (11.5-14.5) % Immature Gran # (0.00-0.04) X 10*3/uL Neutrophils # (1.80-7.70) X 10*3/uL Monocytes # (0.20-1.00) X 10*3/uL D-Dimer >34.10 H (<0.60) mg/L FEU Sodium (135-145) mmol/L Potassium (3.5-5.5) mmol/L Anion Gap (4.00-12.00) mmol/L BUN (9.0-27.0) mg/dL BUN/Creatinine Ratio (12.00-20.00) Ratio Calcium (8.7-10.3) mg/dL Crossmatch
[2024-04-12 09:01] LABS: HCT 25.3 % (37.2-46.3); HGB 7.5 g/dL (12.0-15.0); MCH 20.8 pg (27.0-32.0); MCHC 29.6 g/dL (32.0-37.0); MCV 70.3 FL (80.0-97.0); Mean Platelet Volume 10.1 FL (9.5-12.2); NRBC Per 100 WBC 0 X 10*3/uL (0.00-0.01); Platelet Count 394 X 10*3/uL (140-440); RDW 20.7 % (11.5-14.5); WBC 13.53 X 10*3/uL (4.50-10.00)
[2024-04-12 09:13] LABS: BUN/Creat Ratio 7.67 Ratio (12.00-20.00); Blood Urea Nitrogen 4.6 mg/dL (9.0-27.0); Calcium 8.2 mg/dL (8.7-10.3); Carbon Dioxide 22.9 mmol/L (21.6-31.8); Chloride 103 mmol/L (96-109); Glucose 103 mg/dL (70-110); Magnesium 1.5 mg/dL (1.5-2.4); Potassium 3.2 mmol/L (3.5-5.5); Sodium 136 mmol/L (135-145)
[2024-04-12] MEDS ORDERED: Magnesium Replacement Protocol 1 EACH MISC MISCELLANE PRN (09:47)
[2024-04-12] MEDS ORDERED: Potassium Replacement Protocol 1 EACH MISC MISCELLANE PRN (09:47)
[2024-04-12] MEDS: POTASSIUM CHLORIDE ER 20 MEQ TAB.ER PO SCH (10:03)
[2024-04-12] MEDS: MAGNESIUM SULFATE-D5W PMX 1 GM in DEXTROSE/WATER 1 100ML.BAG IVPB SCH (10:03)
[2024-04-12 10:30] LABS: Basophils # (A) 0.06 X 10*3/uL (0.00-0.10); Basophils % (A) 0.4 %; Eosinophils # (A) 0.12 X 10*3/uL (0.04-0.35); Eosinophils % (A) 0.9 %; Hypochromasia (M) 2+ (None Seen); Lymphocytes # (A) 1.08 X 10*3/uL (0.90-5.00); Monocytes % (A) 10.3 %; Neutrophils # (A) 10.67 X 10*3/uL (1.80-7.70); Neutrophils % (A) 78.9 %
--- NOTE | 2024-04-12 11:47 | P.PN ---
Subjective Progress Note Date: 04/12/24 Principal diagnosis: Reason for follow-up C. difficile colitis Patient is a 43-year-old female with a past medical history significant for COPD presenting the hospital with nausea and diarrhea that the pain has been going on for the last 1 month patient did have a history of antibiotic exposure a month or 2 prior to that, patient be diagnosed with C. difficile colitis prompting this consultation. For today's evaluation that is 04/12/2023, patient has been afebrile, patient is breathing comfortably and is currently on room air, patient denies having any significant cough no chest pain, patient denies nausea vomiting abdominal pain has decreased in intensity and diarrhea has slowed and slightly forming up. Patient white count is 13.5 hemoglobin 7.5 creatinine 0.6 Objective - Vital Signs Vital signs: Vital Signs Temp 98.8 F 04/12/24 07:37 Pulse 73 04/12/24 07:37 Resp 16 04/12/24 07:37 BP 117/64 04/12/24 07:37 Pulse Ox 99 04/12/24 07:37 FiO2 Intake & Output 04/11/24 04/12/24 04/12/24 18:59 06:59 18:59 Other: Voiding Method Toilet # Voids 2 - Exam GENERAL DESCRIPTION: Middle-age female up in bed in no distress RESPIRATORY SYSTEM: Unlabored breathing , decreased breath sounds at bases HEART: S1 S2 regular rate and rhythm , ABDOMEN: Soft , no tenderness EXTREMITIES: No edema feet - Labs CBC & Chem 7: 04/12/24 05:30 04/12/24 05:30 Labs: Abnormal Lab Results - Last 24 Hours (Table) 04/11/24 04/11/24 04/12/24 Range/Units 03:31 03:31 05:30 WBC 13.80 H 13.53 H (4.50-10.00) X 10*3/uL RBC 3.59 L 3.60 L (4.10-5.20) X 10*6/uL Hgb 7.4 L 7.5 L (12.0-15.0) g/dL Hct 26.0 L 25.3 L (37.2-46.3) % MCV 72.4 L 70.3 L (80.0-97.0) FL MCH 20.6 L 20.8 L (27.0-32.0) pg MCHC 28.5 L 29.6 L (32.0-37.0) g/dL RDW 20.6 H 20.7 H (11.5-14.5) % Immature Gran # 0.17 H (0.00-0.04) X 10*3/uL Neutrophils # 11.03 H (1.80-7.70) X 10*3/uL Monocytes # 1.33 H (0.20-1.00) X 10*3/uL Potassium (3.5-5.5) mmol/L BUN 4.3 L (9.0-27.0) mg/dL BUN/Creatinine Ratio 7.17 L (12.00-20.00) Ratio Glucose 116 H (70-110) mg/dL Calcium 8.3 L (8.7-10.3) mg/dL 04/12/24 Range/Units 05:30 WBC (4.50-10.00) X 10*3/uL RBC (4.10-5.20) X 10*6/uL Hgb (12.0-15.0) g/dL Hct (37.2-46.3) % MCV (80.0-97.0) FL MCH (27.0-32.0) pg MCHC (32.0-37.0) g/dL RDW (11.5-14.5) % Immature Gran # (0.00-0.04) X 10*3/uL Neutrophils # (1.80-7.70) X 10*3/uL Monocytes # (0.20-1.00) X 10*3/uL Potassium 3.2 L (3.5-5.5) mmol/L BUN 4.6 L (9.0-27.0) mg/dL BUN/Creatinine Ratio 7.67 L (12.00-20.00) Ratio Glucose (70-110) mg/dL Calcium 8.2 L (8.7-10.3) mg/dL Assessment and Plan (1) Sepsis Current Visit: Yes Status: Acute Code(s): A41.9 - SEPSIS, UNSPECIFIED ORGANISM SNOMED Code(s): 13735760 (2) Leukocytosis Current Visit: Yes Status: Acute Code(s): D72.829 - ELEVATED WHITE BLOOD CELL COUNT, UNSPECIFIED SNOMED Code(s): 493924078 (3) C. difficile diarrhea Current Visit: Yes Status: Acute Code(s): A04.72 - ENTEROCOLITIS D/T CLOS TRIDIUM DIFFICILE, NOT SPCF RECUR SNOMED Code(s): 1293786936854 Plan: 1patient presented to hospital with sepsis in this patient who did have fever elevated white count source is C. difficile colitis in this patient symptom has been going on for almost a month before presentation to the hospital 2--patient is afebrile the patient white count is trending down down to 13,000 3patient diarrhea slowing down, patient will be continued on vancomycin Questran and encouraged to increase probiotic yogurt intake, plan is for oral vancomycin on discharge Dictation was produced using [employer] dictation software. please excuse any grammatical, word or spelling errors. Time with Patient: Less than 30
--- NOTE | 2024-04-12 14:35 | P.PN ---
Subjective Progress Note Date: 04/12/24 SURGICAL PROGRESS NOTE CHIEF COMPLAINT: C. difficile colitis HISTORY OF PRESENT ILLNESS: Patient continues to report diarrhea. She reports her stools are getting a little more formed and less frequent. Patient reporting no further blood in the stools. She still has abdominal distention. Overall patient reports that she has not getting worse. Afebrile. She did have a low-grade temp of 99.9 last night. WBC staying the same at 13.5 Hgb 7.5. Patient receiving IV iron. Potassium 3.2 magnesium 1.5 PHYSICAL EXAM: VITAL SIGNS: Reviewed. GENERAL: Well-developed in no acute distress. ABDOMEN: Distended. Mild diffuse tenderness NEUROLOGIC: Alert and oriented. Cranial nerves II through XII grossly intact. ASSESSMENT: 1. C. difficile colitis 2. Hypokalemia and hypomagnesemia PLAN: -Continue regular diet -Continue oral vancomycin for C. difficile colitis -Medicine service replacing potassium and magnesium -No evidence of toxic megacolon. Stool occult is likely secondary to inflammat ory process. -Patient will benefit from colonoscopy at some point after resolution of C. difficile infection Physician Hospital Receptionist note has been reviewed by physician. Signing provider agrees with the documented findings, assessment, and plan of care. Attestation Patient seen and examined at bedside. Presented with chief complaint of abdominal pain and is being treated for C. difficile colitis. She continues to improve. Continue ID recommendations with oral vancomycin. Continue regular diet. She will benefit from colonoscopy after resolution of C. difficile. Jana Lira, DO Objective - Vital Signs Vital signs: Vital Signs Temp 97.8 F 04/12/24 14:00 Pulse 79 04/12/24 14:00 Resp 17 04/12/24 14:00 BP 130/78 04/12/24 14:00 Pulse Ox 100 04/12/24 14:00 FiO2 Intake & Output 04/11/24 04/12/24 04/12/24 18:59 06:59 18:59 Other: Voiding Method Toilet Toilet # Voids 2 - Labs CBC & Chem 7: 04/12/24 05:30 04/12/24 05:30 Labs: Abnormal Lab Results - Last 24 Hours (Table) 04/12/24 04/12/24 Range/Units 05:30 05:30 WBC 13.53 H (4.50-10.00) X 10*3/uL RBC 3.60 L (4.10-5.20) X 10*6/uL Hgb 7.5 L (12.0-15.0) g/dL Hct 25.3 L (37.2-46.3) % MCV 70.3 L (80.0-97.0) FL MCH 20.8 L (27.0-32.0) pg MCHC 29.6 L (32.0-37.0) g/dL RDW 20.7 H (11.5-14.5) % Immature Gran # 0.20 H (0.00-0.04) X 10*3/uL Neutrophils # 10.67 H (1.80-7.70) X 10*3/uL Monocytes # 1.40 H (0.20-1.00) X 10*3/uL Hypochromasia (manual) 2+ A (None Seen) Potassium 3.2 L (3.5-5.5) mmol/L BUN 4.6 L (9.0-27.0) mg/dL BUN/Creatinine Ratio 7.67 L (12.00-20.00) Ratio Calcium 8.2 L (8.7-10.3) mg/dL
[2024-04-12] MEDS: HYDROCORTISONE 1% CREAM 30 GM TUBE TOPICAL PRN (15:57)
[2024-04-12] MEDS: MINERAL OIL-WHITE PETROLATUM 120 GM JAR TOPICAL PRN (18:51)
--- NOTE | 2024-04-13 03:13 | P.PN ---
Subjective Progress Note Date: 04/12/24 his is a pleasant 43-year-old female with medical history significant for COPD, anxiety/depression, daily vape use. Patient comes into the hospital after reporting a 1 month history of nausea and diarrhea. She also feels bloated and gassy. She then over the last couple days experiencing dark stools and abdominal discomfort mainly on the left side and had some mild abdominal tenderness. Patient has not reported fever but was found to have a temp of 102.5 on admission. Has been fatigued and states she "passed out" today while getting out of the shower. She has been following along with her family doctor for this diarrhea recommended yogurt and probiotics and patient has been doing that for the last 4 to 5 days. She is also on oral iron for iron deficiency anemia and states that her stools have been darker over the last couple days as well. Had an abdominal pelvis CT done on which reveals fluid identified within the distal colon and rectum consistent with reported history of diarrhea. No focal wall thickening or surrounding inflammatory changes. Large fibroid uterus which may contribute to patient's abdominal pain. On admission, patient was found to have C. difficile infection. Patient does report being on oral and vaginal metronidazole for BV, 2 to 3 months before she began having the diarrhea. Chest X-ray on admission reveals no acute cardiopulmonary process. Initial white blood cell count of 22.9, hemoglobin of 9.0, sodium level of 130, potassium 3.3, BUN of 7 creatinine of 0.88. 04/09/2024 Patient is seen in follow-up today continues to have multiple episodes of diarrhea although is lessening and abdominal pain is improving slightly. Patient continues with abdominal cramping and tenderness although improved from previous. Patient maintained on clear liquids able to tolerate and diet is being advanced per surgery with no plans of intervention at this time. They recommend outpatient follow-up with colonoscopy once cleared from C. difficile. Patient is continued on oral vancomycin with infectious disease following and will continue current regimen. Hold on initiating Imodium or Questran at this time and will discuss further with infectious disease. Will follow-up on repeat labs as white count remains elevated although is trending down and currently 31 today. Encouraged increase activity as tolerated. 04/10/2024 Patient evaluated today sitting up at the bedside. She is reporting mild abdominal discomfort. Has had 3 episodes of diarrhea so far today. Questran has been added. Remains on oral vancomycin. Patient reports shortness of breath and difficulty taking a deep breath. General surgery following with no plans for endoscopic evaluation at this time. Recommending outpatient colonoscopy. Hemoglobin down to 6.7. today. Sodium 134, potassium 3.1, magnesium 2.1. BUN 6.6, creatinine 0.6. Overall fever is improving. 04/11/2024 Patient is seen and evaluated in follow-up today with infectious disease and general surgery. Patient is oral Vanco and has been started on Questran for C. difficile colitis. Patient is s/p 1 unit of PRBC and hemoglobin is above 7 with no active bleeding noted. Will follow-up on repeat labs and transfuse if 7 or less. Patient reports has history of anemia with iron deficiency and will give a dose of IV iron. Patient reports this morning she finally tolerated and had some regular food. Patient is continued with frequent bowel movements although less frequent to be in liquid form. Encourage increase activity as tolerated. Patient is afebrile and white count is trending down. 04/12/2024 Patient seen in follow-up with general surgery and infectious disease following. Patient having less bowel movements although continued to be liquid and having some bloating and mild abdominal distention. Patient has been up and walking to the bathroom with no difficulties. Hemoglobin just above 7 with no active bleeding noted. Will follow-up on repeat labs and replace if 7 or less. Patient is continued on Questran and tolerating diet although not much of an appetite. Patient did have low-grade temps and white count remains elevated although is trending down. Will follow-up on repeat labs Review of systems: Constitutional: No reports of fatigue, fever, or chills Cardiovascular: No reports of chest pain or palpitations Respiratory: No reports of shortness of breath or cough GI: No reports of nausea, vomiting, reports continued loose stools but less frequent : No reports of dysuria or retention Neurovascular: No reports of weakness or numbness All medications have been reviewed PHYSICAL EXAMINATION: GENERAL: The patient is alert and oriented x3, not in any acute distress. Well developed, thin built HEENT: Pupils are round and equally reacting to light. EOMI. No scleral icterus. No conjunctival pallor. Normocephalic, atraumatic. No pharyngeal erythema. No thyromegaly. CARDIOVASCULAR: S1 and S2 present. No murmurs, rubs, or gallops. PULMONARY: Chest is clear to auscultation, no wheezing or crackles. ABDOMEN: Soft, mild abdominal tenderness, nondistended, normoactive bowel sounds. No palpable organomegaly. MUSCULOSKELETAL: No joint swelling or deformity. EXTREMITIES: No cyanosis, clubbing, or pedal edema. NEUROLOGICAL: Gross neurological examination did not reveal any focal deficits. SKIN: No rashes. Assessment: Diarrhea of 1 month with positive C. difficile Leukocytosis and fever with concern for sepsis on admission secondary to above History of iron deficiency anemia maintained on oral ferrous sulfate which is currently being held at this time Hyponatremia hypovolemic improved with IV fluids Elevated D-dimer, PE ruled out Hypokalemia secondary to continued diarrhea, improved after replacement Abnormal urinalysis no evidence for acute infection this is dehydrational History of COPD with no acute exacerbation History of anxiety/depression Daily vape use GI prophylaxis Full code Plan: Infectious disease following and patient is continued on oral vancomycin 500 mg 4 times daily. Patient continues to report multiple episodes of diarrhea although is lightening up and less frequent. Patient has been taking questran. General surgery has evaluated the patient recommending outpatient follow-up with colonoscopy once C. difficile is resolved. Diet is being advanced to regular diet. Patient to receive 1 unit of PRBC yesterday and hemoglobin today is above 7. Monitor for rectal bleeding and repeat CBC tomorrow. Monitor electrolytes and replace per protocol as well as following up on repeat CBC to monitor white count. White count is trending down. Patient did have low-grade temp last night Repeat labs ordered for a.m. Continue current regimen and will discuss with consultations regarding discharge planning possibly in the next 24 to 48 hours The impression and plan of care has been dictated by Aminata Darling Nurse Pract itioner as directed. Dr. Dakota MD I have performed a history and physical examination and medical decision making of this patient, discussed the same with the dictator, and agree with the dictators assessment and plan as written, documented as a scribe. Based on total visit time, I have performed more than 50% of this visit. Objective - Vital Signs Vital signs: Vital Signs Temp 98.8 F 04/12/24 19:23 Pulse 85 04/12/24 19:23 Resp 16 04/12/24 19:23 BP 119/69 04/12/24 19:23 Pulse Ox 97 04/12/24 19:23 FiO2 Intake & Output 04/12/24 04/12/24 04/13/24 06:59 18:59 06:59 Other: Voiding Method Toilet Toilet # Voids 2 3 - Labs CBC & Chem 7: 04/12/24 05:30 04/12/24 05:30 Labs: Abnormal Lab Results - Last 24 Hours (Table) 04/12/24 04/12/24 Range/Units 05:30 05:30 WBC 13.53 H (4.50-10.00) X 10*3/uL RBC 3.60 L (4.10-5.20) X 10*6/uL Hgb 7.5 L (12.0-15.0) g/dL Hct 25.3 L (37.2-46.3) % MCV 70.3 L (80.0-97.0) FL MCH 20.8 L (27.0-32.0) pg MCHC 29.6 L (32.0-37.0) g/dL RDW 20.7 H (11.5-14.5) % Immature Gran # 0.20 H (0.00-0.04) X 10*3/uL Neutrophils # 10.67 H (1.80-7.70) X 10*3/uL Monocytes # 1.40 H (0.20-1.00) X 10*3/uL Hypochromasia (manual) 2+ A (None Seen) Potassium 3.2 L (3.5-5.5) mmol/L BUN 4.6 L (9.0-27.0) mg/dL BUN/Creatinine Ratio 7.67 L (12.00-20.00) Ratio Calcium 8.2 L (8.7-10.3) mg/dL
[2024-04-13] MEDS: SIMETHICONE 40 MG/0.6 ML DROPS 2,000 MG/30 ML BOTTLE PO PRN (04:07)
[2024-04-13 08:48] VITALS: RESP 16
[2024-04-13 08:51] LABS: BUN/Creat Ratio 8.33 Ratio (12.00-20.00); Calcium 8.5 mg/dL (8.7-10.3); Carbon Dioxide 23.1 mmol/L (21.6-31.8); Chloride 104 mmol/L (96-109); Glucose 99 mg/dL (70-110); Magnesium 1.6 mg/dL (1.5-2.4); Potassium 3.6 mmol/L (3.5-5.5); Sodium 138 mmol/L (135-145)
[2024-04-13] MEDS ORDERED: Magnesium Replacement Protocol 1 EACH MISC MISCELLANE PRN (09:19)
[2024-04-13 09:30] LABS: Basophils # (A) 0.03 X 10*3/uL (0.00-0.10); Basophils % (A) 0.3 %; Eosinophils # (A) 0.26 X 10*3/uL (0.04-0.35); Eosinophils % (A) 2.5 %; HCT 26.9 % (37.2-46.3); HGB 7.8 g/dL (12.0-15.0); Lymphocytes # (A) 1.26 X 10*3/uL (0.90-5.00); Lymphocytes % (A) 11.9 %; MCH 20.7 pg (27.0-32.0); MCV 71.5 FL (80.0-97.0); Mean Platelet Volume 10.3 FL (9.5-12.2); Monocytes % (A) 9.4 %; NRBC Per 100 WBC 0 X 10*3/uL (0.00-0.01); Neutrophils # (A) 7.86 X 10*3/uL (1.80-7.70); Neutrophils % (A) 74.1 %; Platelet Count 388 X 10*3/uL (140-440); RBC 3.76 X 10*6/uL (4.10-5.20); RDW 20.9 % (11.5-14.5)
[2024-04-13] MEDS: MAGNESIUM SULFATE-D5W PMX 1 GM in DEXTROSE/WATER 1 100ML.BAG IVPB ONE (10:40)
--- NOTE | 2024-04-13 14:32 | P.PN ---
Subjective Progress Note Date: 04/13/24 SURGICAL PROGRESS NOTE CHIEF COMPLAINT: C. difficile colitis HISTORY OF PRESENT ILLNESS: Patient continues to complain of abdominal distention and diarrhea. She does report overall she is improving since admission. She denies any nausea or vomiting. Tolerating regular diet. Afebrile. WBC is down from 13-10 hemoglobin 7.5-7.8 patient denies any further blood in the stools. Magnesium 1.6 and receiving replacement. PHYSICAL EXAM: VITAL SIGNS: Reviewed. GENERAL: Well-developed in no acute distress. ABDOMEN: Distended. Mild diffuse tenderness NEUROLOGIC: Alert and oriented. Cranial nerves II through XII grossly intact. ASSESSMENT: 1. C. difficile colitis 2. Hypokalemia and hypomagnesemia PLAN: -Continue regular diet -Continue oral vancomycin for C. difficile colitis -Medicine service replacing magnesium -No evidence of toxic megacolon. Stool occult is likely secondary to inflamm atory process. -Patient will benefit from colonoscopy outpatient after resolution of C. difficile infection Physician [employer] Finisher note has been reviewed by physician. Signing provider agrees with the documented findings, assessment, and plan of care. Objective - Vital Signs Vital signs: Vital Signs Temp 98.3 F 04/13/24 08:00 Pulse 76 04/13/24 08:00 Resp 16 04/13/24 08:00 BP 120/76 04/13/24 08:00 Pulse Ox 100 04/13/24 08:00 FiO2 Intake & Output 04/12/24 04/13/24 04/13/24 18:59 06:59 18:59 Intake Total 118 Balance 118 Weight 68.039 kg Intake: Oral 118 Other: Voiding Method Toilet Toilet # Voids 3 3 # Bowel Movements 1 - Labs CBC & Chem 7: 04/13/24 05:44 04/13/24 05:44 Labs: Abnormal Lab Results - Last 24 Hours (Table) 04/13/24 04/13/24 Range/Units 05:44 05:44 WBC 10.60 H (4.50-10.00) X 10*3/uL RBC 3.76 L (4.10-5.20) X 10*6/uL Hgb 7.8 L (12.0-15.0) g/dL Hct 26.9 L (37.2-46.3) % MCV 71.5 L (80.0-97.0) FL MCH 20.7 L (27.0-32.0) pg MCHC 29.0 L (32.0-37.0) g/dL RDW 20.9 H (11.5-14.5) % Immature Gran # 0.19 H (0.00-0.04) X 10*3/uL Neutrophils # 7.86 H (1.80-7.70) X 10*3/uL BUN 5.0 L (9.0-27.0) mg/dL BUN/Creatinine Ratio 8.33 L (12.00-20.00) Ratio Calcium 8.5 L (8.7-10.3) mg/dL Assessment and Plan Assessment: 43 yo female w/ c. diff colitis no signs of toxic megacolon at this time continue abx monitor bowel function daily probiotic Time with Patient: Less than 30
[2024-04-13 15:00] VITALS: BP 132/77; PULSE 87; TEMP 98.2
--- NOTE | 2024-04-13 15:05 | P.PN ---
Subjective Progress Note Date: 04/13/24 Principal diagnosis: Reason for follow-up C. difficile colitis Patient is a 43-year-old female with a past medical history significant for COPD presenting the hospital with nausea and diarrhea that the pain has been going on for the last 1 month patient did have a history of antibiotic exposure a month or 2 prior to that, patient be diagnosed with C. difficile colitis prompting this consultation. For today's evaluation that is 04/13/2024, Patient is afebrile this morning patient denies having any chest pain shortness of breath or cough, the patient is currently on room air, patient complaining of some abdominal bloating no nausea no vomiting diarrhea has slowed down slightly forming up. Patient white count is up to 10.60, creatinine 0.6 Objective - Vital Signs Vital signs: Vital Signs Temp 98.3 F 04/13/24 08:00 Pulse 76 04/13/24 08:00 Resp 16 04/13/24 08:00 BP 120/76 04/13/24 08:00 Pulse Ox 100 04/13/24 08:00 FiO2 Intake & Output 04/12/24 04/13/24 04/13/24 18:59 06:59 18:59 Intake Total 118 Balance 118 Weight 68.039 kg Intake: Oral 118 Other: Voiding Method Toilet Toilet # Voids 3 3 # Bowel Movements 1 - Exam GENERAL DESCRIPTION: Middle-age female up in bed in no distress RESPIRATORY SYSTEM: Unlabored breathing , decreased breath sounds at bases HEART: S1 S2 regular rate and rhythm , ABDOMEN: Soft , no tenderness EXTREMITIES: No edema feet - Labs CBC & Chem 7: 04/13/24 05:44 04/13/24 05:44 Labs: Abnormal Lab Results - Last 24 Hours (Table) 04/13/24 04/13/24 Range/Units 05:44 05:44 WBC 10.60 H (4.50-10.00) X 10*3/uL RBC 3.76 L (4.10-5.20) X 10*6/uL Hgb 7.8 L (12.0-15.0) g/dL Hct 26.9 L (37.2-46.3) % MCV 71.5 L (80.0-97.0) FL MCH 20.7 L (27.0-32.0) pg MCHC 29.0 L (32.0-37.0) g/dL RDW 20.9 H (11.5-14.5) % Immature Gran # 0.19 H (0.00-0.04) X 10*3/uL Neutrophils # 7.86 H (1.80-7.70) X 10*3/uL BUN 5.0 L (9.0-27.0) mg/dL BUN/Creatinine Ratio 8.33 L (12.00-20.00) Ratio Calcium 8.5 L (8.7-10.3) mg/dL Assessment and Plan (1) Sepsis Current Visit: Yes Status: Acute Code(s): A41.9 - SEPSIS, UNSPECIFIED ORGANISM SNOMED Code(s): 40736572 (2) Leukocytosis Current Visit: Yes Status: Acute Code(s): D72.829 - ELEVATED WHITE BLOOD CELL COUNT, UNSPECIFIED SNOMED Code(s): 926446117 (3) C. difficile diarrhea Current Visit: Yes Status: Acute Code(s): A04.72 - ENTEROCOLITIS D/T CLOSTRIDIUM DIFFICILE, NOT SPCF RECUR SNOMED Code(s): 6602978451700 Plan: 1patient presented to hospital with sepsis in this patient who did have fever elevated white count source is C. difficile colitis in this patient symptom has been going on for almost a month before presentation to the hospital 2--patient is afebrile the patient white count is trending down down to 13,000 3patient did have improvement in her diarrhea and white count normalized she will be advised vancomycin 250 p.o. every 6 hours for 10 days on discharge discussed with P[employer] PA[employer] TRIMMER for admitting team Dictation was produced using [employer] dictation software. please excuse any grammatical, word or spelling errors. Time with Patient: Less than 30
== END 2024-04-13 17:00 | disposition home or self-care (01) | DRG 872 ==
LOC: EC 09:11 → 6NMEDSUR 16:48 → OBSVTOIN 16:49 → 6NMEDSUR 20:28
PROVIDERS: ADMIT Hospitalist; ATTEND Hospitalist
DX: A41.9 Sepsis, unspecified organism (principal); A04.72 Enterocolitis due to Clostridium difficile, not specified as recurrent; E87.1 Hypo-osmolality and hyponatremia; D50.9 Iron deficiency anemia, unspecified; F17.290 Nicotine dependence, other tobacco product, uncomplicated; D25.9 Leiomyoma of uterus, unspecified; Z11.52 Encounter for screening for COVID-19; J44.9 Chronic obstructive pulmonary disease, unspecified; F32.A Depression, unspecified; E83.42 Hypomagnesemia; E86.0 Dehydration; E86.1 Hypovolemia; E87.6 Hypokalemia; F41.9 Anxiety disorder, unspecified; Z79.899 Other long term (current) drug therapy; Z82.49 Family history of ischemic heart disease and other diseases of the circulatory system; Z91.018 Allergy to other foods
CPT/HCPCS: 36415; 71046; 71275; 80048; 80053; 81001; 82272; 83735; 85025; 85379; 86850; 86900; 86901; 86920; 87324; 87636; 93005; 96361; 96374; 96376; 99285